=== PATIENT | male | born 1940 | race Caucasian/White ===

== ENCOUNTER 2024-04-10 16:45 | Emergency (ER) | payer OTHER, SELFPAY ==
[2024-04-10] VITALS (8 sets, daily range): BP systolic 120–157; BP diastolic 52–119; BMI 31.8
[2024-04-10 17:16] LABS: % Basophils 0.4 % (0-2); % Eosinophils 0.8 % (0-6); % Immature Granulocytes 0.4 % (0-0.5); % Lymphocytes 11.6 % (20.5-51.1); % Monocytes 5.8 % (1.7-9.3); Absolute Eosinophils 0.1 10^3/uL (0-0.7); Absolute Lymphocytes 1.1 10^3/uL (1.2-3.4); Absolute Monocytes 0.5 10^3/uL (0.1-0.6); Absolute Neutrophils 7.5 10^3/uL (1.4-6.5); Hematocrit 39.5 % (39.0-52.0); Hemoglobin 13.7 g/dL (13.0-18.0); Mean Corp Hgb Conc. 34.7 g/dL (33.0-37.0); Mean Corpuscular Hgb 28.7 pg (27.0-31.0); Mean Corpuscular Volume 82.8 fL (80.0-94.0); Mean Platelet Volume 9.5 fL (7.4-10.4); Nucleated Red Blood Cells % 0 % (-); Platelet Count 252 10^3/uL (130-400); Red Blood Cell Count 4.77 10^6/uL (4.70-6.10); Red Cell Dist. Width 13.4 % (11.5-14.5); White Blood Cell Count 9.3 10^3/uL (4.8-10.8)
--- NOTE | 2024-04-10 17:29 | ED.GENMED ---
History of Present Illness
General
Chief Complaint: Weakness
Source: patient
Time Seen by Provider: 04/10/24 17:12
Nursing documentation reviewed up to this point in time: agreed with
History of Present Illness
History of Present Illness:
Pleasant 83-year-old male presents with nausea, vomiting and weakness today. Patient was in the [place] yesterday. While on vacation he awakened from a dream and was startled, falling and hitting his head on the corner of the nightstand. He
went to the local hospital because the bleeding could not be controlled with direct pressure. He had a CAT scan there which they stated was normal. They gave him 3 eliezer and sent him home. Patient is on Xarelto and took a dose last evening.
This morning he awakened with a headache. This was the first time since the injury that he had a headache, along with nausea and progressive weakness. Patient's states that he is not 'acting himself '. Patient has a past medical history
significant for persistent atrial fibrillation, for which she is on Xarelto. He also has high blood pressure and hyperlipidemia. Patient denies chest pain or shortness of breath.
Past History
Past History
ED Past Medical History: Arrthythmia (Atrial fibrillation), HTN, Hypercholesterolemia and Other (: Polyps)
ED Past Surgical History: Other (History of colon polyps and removal of 12/04/2011, and carpal tunnel surgery)
Social History
Tobacco: Non-smoker
Alcohol: None
Personal:
Living: with family
Employment: Retired
Phy Exam
General Physical Exam
General Presentation: well appearing and no apparent distress
General Skin: warm and dry
General Habitus: normal
General Mental: alert
General Hydration: appears well hydrated
ENT Exam
ENT Exam: EOMI, pharynx normal, neck supple and normocephalic
Eye Exam
Eye Exam: PERRL, cornea clear and conjunctiva normal
Cardiovascular Exam
Cardiovascular Exam: no edema, no murmur, normal peripheral pulses and irregularly irregular
Pulmonary Exam
Pulmonary Exam: lungs clear, no respiratory distress, no rales, no crackles, no rhonchi, no stridor, no wheezing and no cough
Gastrointestinal Exam
Gastrointestinal Exam: normal bowel sounds, non tender, soft, no organomegaly, no pulsatile mass and non distended
Neurological Exam
Neurological Exam: alert, oriented x3, no motor deficits and speech normal
Musculoskeletal Exam
Musculoskeletal Exam: full ROM and no edema
Skin Exam
Skin Exam: normal color (Slightly sunburned), warm/dry, no rash, no petechia and laceration (3 sutures in the scalp from a laceration sustained yesterday)
Psychiatric Exam
Psychiatric Exam: normal mood/affect
Course
Orders/Labs/Results
Orders:
Orders
04/10/24 17:09
CMP [Comprehensive Metabolic Panel] Urgent
Complete Blood Count/With Diff Urgent
Creatine Phosphokinase Urgent
Comment: ADD ON
04/10/24 17:10
EKG [Electrocardiogram (*1)] Urgent
Reason for Study: Fatigue / Weakness
04/10/24 17:11
EKG- Treatment ONCE
04/10/24 17:25
CT Head W/o Iv Contrast Urgent
Comment:
Reason For Exam: fall yest on xaralto. CT neg yest. N/v,dizzy,weak
04/10/24 17:26
Add On- LAB Urgent
Tests Added?: cpk
04/10/24 19:26
Levetiracetam [Keppra] 500 mg PO NOW STA
04/10/24 19:53
Prothrombin Complex(Pcc),Human [Kcentra] 2,595 unit Empty Viaflex Container 100 ml [Viaflex Empty Container] 100 ml IV NOW
Abnormal Lab Results
04/10/24
17:09
Absolute Neuts (auto) 7.5 H 10^3/uL
(1.4-6.5)
Absolute Lymphs (auto) 1.1 L 10^3/uL
(1.2-3.4)
Neutrophils % 81.0 H %
(42.2-75.2)
Lymphocytes % 11.6 L %
(20.5-51.1)
Sodium 134 L mmol/L
(135-145)
Glucose 146 H mg/dl
(70-99)
04/10/24 17:09
04/10/24 17:09
Vital Signs
Initial and Last Documented VS:
Initial Vital Signs
Temp Pulse Resp BP Pulse Ox
98.3 F 66 18 131/64 99
04/10/24 16:52 04/10/24 16:52 04/10/24 16:52 04/10/24 16:52 04/10/24 16:52
Last Documented Vital Signs
Temp Pulse Resp BP Pulse Ox
98.3 F 49 17 120/58 99
04/10/24 16:52 04/10/24 21:00 04/10/24 21:00 04/10/24 21:00 04/10/24 16:52
*Critical Care Note
Total Time (30-74mins, 75-104mins- exclusive of procedures): 45
comment:
Critical care statement: A total of 45 minutes of critical care time was provided for this patient. This time is separate from time utilized to perform the aforementioned documented procedures. Aggregate critical care time includes only time
during which I was engaged in work directly related to the patient's care, as described above, whether at the bedside or elsewhere in the Emergency Department.
Update Note
Update Note:
Spoke with Valdo Lara, neurology who recommended transfer to trauma center. Spoke with Dr. Brambila, trauma surgeon on-call at [facility] who agreed to accept patient for trauma transfer. Spoke with Dr. Bowser, trauma surgeon who agreed to
accept patient in transfer to the emergency department. Requested we start Kcentra. Xarelto discontinued. Patient received 500 mg of Keppra p.o.
ED Attending Note
-
Portions of this chart may have been created with voice recognition software.� Occasional wrong word or��sound alike� substitutions may have occurred due to the inherent limitations of voice recognition software.
Discharge Plan
Departure
Patient Disposition: Acute Care Hospital
Date of Disposition: 04/10/24
Time of Disposition: 19:28
Condition: Good
Discharge Problem:
Acute subdural hematoma
Prescriptions:
No Action
furosemide 40 MG tablet
40 mg PO DAILY
amlodipine 5 MG tablet
5 mg PO DAILY
lisinopril [Prinivil] 40 MG tablet
40 mg PO DAILY
Xarelto 20 MG tablet
20 mg PO QPM
atorvastatin 40 mg Tablet
40 mg PO DAILY
atenolol 25 mg Tablet
25 mg PO DAILY
gabapentin 100 mg Tablet
100 mg PO DAILY
Arnuity Ellipta 200 mcg/actuation Blister With Device
1 inh INHALATION DAILY
citalopram 30 mg Capsule
30 mg PO DAILY
Referrals:
Doug Maldonado MD [Family Provider] -
Hospital Transfer
Other hospital: [facility]
I certify that the patient requires transfer: Yes
Discussed case with accepting physician: Dr. Bowser after consultation with Dr. Brambila
Reason for transfer: higher level of care, medical necessity and availability of service
Interventions
Interventions:
*Risk Screen - Suicide Last Done: 04/10/24 16:52
*General Assessment Last Done: 04/10/24 16:55
*Neglect/Abuse Screening Last Done: 04/10/24 16:52
ED- Fall Risk Assessment Last Done: 04/10/24 16:52
*ED COVID-19 Vaccine History Last Done: 04/10/24 16:52
*Nursing Disposition Last Done: 04/10/24 20:58
ED- Cardiac Assessment Last Done: 04/10/24 16:56
ED- Neurological Assessment Last Done: 04/10/24 16:56
ED- Pulmonary Assessment Last Done: 04/10/24 16:56
Discharge Date and Time
Discharge Date/Time: 04/10/24 21:17
Print Language: STATELESS
[2024-04-10 17:38] LABS: ALT (SGPT) 17 U/L (0-50); AST (SGOT) 22 U/L (17-59); Albumin 4.4 g/dl (3.5-5.0); Alkaline Phosphatase 118 U/L (38-126); Blood Urea Nitrogen 17 mg/dl (9-20); Calcium 9.3 mg/dl (8.4-10.2); Carbon Dioxide 26 mmol/L (22-30); Chloride 98 mmol/L (98-107); Estimated Creatinine Clearance 91 ml/min; Glucose 146 mg/dl (70-99); Potassium 4.7 mmol/L (3.5-5.1); Sodium 134 mmol/L (135-145); Total Bilirubin 1.3 mg/dl (0.2-1.3); Total Protein 7.3 g/dl (6.3-8.2); eGFR > 60.00
[2024-04-10 17:50] LABS: Creatine Phosphokinase 129 U/L (55-170)
[2024-04-10] MEDS: KEPPRA 500 MG PO (19:39)
[2024-04-10] MEDS: KCENTRA 100 UNIT IV (20:18)
== END 2024-04-10 21:17 | disposition short-term general hospital (02) ==
LOC: EMR 16:45
PROVIDERS: Emergency Medicine; EMERGENCY PHYSICIAN Student in an Organized Health Care Education/Training Program; FAMILY PHYSICIAN Family Medicine
DX: S06.5XAA Traumatic subdural hemorrhage with loss of consciousness status unknown, initial encounter (principal); W06.XXXA Fall from bed, initial encounter; Z79.01 Long term (current) use of anticoagulants
CPT/HCPCS: 99291; 96374; 70450; 80053; 82550; 85025; 93005; J7168

== ENCOUNTER 2024-04-20 15:06 | Inpatient (IN) | payer OTHER, SELFPAY ==
[2024-04-19] VITALS (12 sets, daily range): BP systolic 120–163; BP diastolic 54–78; PULSE 69–86; BMI 31.2
--- NOTE | 2024-04-19 08:45 | ED.GENMED ---
History of Present Illness
General
Chief Complaint: Dizziness
Source: patient
Exam Limitations: none
Time Seen by Provider: 04/19/24 08:45
History of Present Illness
History of Present Illness:
See MDM
Past History
Past History
ED Past Medical History: Arrthythmia (Atrial fibrillation), HTN, Hypercholesterolemia and Other (: Polyps)
ED Past Surgical History: Other (History of colon polyps and removal of 12/04/2011, and carpal tunnel surgery)
Social History
Tobacco: Non-smoker
Alcohol: None
Personal:
Living: with family
Employment: Retired
Phy Exam
Physical Exam
Physical Exam:
See MDM
Scores
NIH Stroke Score
Level of Consciousness: 0 - Alert
LOC Questions: 0-Answers both correctly
LOC Commands: 0-Performs both correctly
Best Horizontal Gaze: 0-Normal
Visual Nelson: 0=Normal, no visual loss
Facial Palsy: 0=Normal, symmetrical
Motor - Right Arm: 0=No drift 10 seconds
Motor - Left Arm: 0=No drift 10 seconds
Motor - Right Le-No drift 5 seconds
Motor - Left Le-No drift 5 seconds
Limb Ataxia: 0-Absent
Sensation: 0-Normal
Best Language: 1-Mild aphasia
Dysarthria: 0-Normal
Extinction and Inattention: 0-No abnormality
Total Score:: 1
Course
Orders/Labs/Results
Orders:
Orders
04/19/24 08:45
Electrocardiogram (*1) Urgent
Reason for Study: Vertigo / Dizzy
CT Head W/o Iv Contrast Urgent
Comment:
Reason For Exam: Dizzy, recent head bleed last week
EKG- Treatment ONCE
04/19/24 09:02
Complete Blood Count/With Diff Urgent
Comprehensive Metabolic Panel Urgent
Abnormal Lab Results
04/19/24 04/19/24
08:46 09:02
Sodium 132 L mmol/L
(135-145)
Chloride 97 L mmol/L
(98-107)
Glucose 168 H mg/dl
(70-99)
POC Glucose 174 H mg/dl
(70-99)
04/19/24 09:02
04/19/24 09:02
Vital Signs
Initial and Last Documented VS:
Initial Vital Signs
Pulse Resp BP
60 12 125/59
04/19/24 08:44 04/19/24 08:44 04/19/24 08:44
Last Documented Vital Signs
Pulse Resp BP Pulse Ox
65 13 139/72 97
04/19/24 10:45 04/19/24 10:45 04/19/24 10:09 04/19/24 10:45
MDM/Problems Addressed
Differential Diagnosis Includes:
HPI and MDM Narrative:
83-year-old male presenting with resolved dizziness. Patient woke up feeling dizzy. Of note, patient had a fall last week while on vacation. He was evaluated when he returned and found to have head bleed. His Xarelto has since been held. He was
discharged last week from the hospital at [place]. His eliezer were removed yesterday. He woke up feeling dizzy today
Symptoms have since resolved. He has no cerebellar signs. He has mild word finding issues but states this is normal ever since his injury
Physical exam
General: Well appearing and non-toxic
HEENT: protecting airway. Well-healing laceration to posterior right scalp
Neck: supple
CV: No evidence of cyanosis. Regular rate, irregular rhythm
Resp: No accessory muscle use
Abd: Non-distended
Extremities: No deformities
Neuro: alert. Normal finger-nose
Psych: Normal affect
Skin: Intact
Problems Addressed including Acute and Chronic Conditions affecting care:
1. Resolving dizziness and aphasia
Acuity: acute
Prognosis: stable
Details: Given his intracranial hemorrhage, will repeat CT
Updates
at bedside. She indicated that patient had about a 5-minute episode where he was minimally responsive and was unable to speak. Symptoms appear to self resolved. Patient appears to be symptom-free at the moment. She is worried about possible
stroke. She indicates that his sales and events coordinator Dr. Rose had referenced that there is a clot in his atrium and the plan was to continue Xarelto. However, the recent head bleed has taken him off of Xarelto.
CT confirms that there is still a subdural hemorrhage. Radiology indicating that there could be a subacute hemorrhage component. Patient is at baseline and has no new focal deficits and denies any headache. He is no longer on Xarelto.
Neurosurgery did evaluate the CT and believes that there is no new hemorrhage.
Will admit for further stroke workup
Differential Diagnosis (but not limited to): Vertigo, intracranial hemorrhage, stroke
Testing considered: CT angiogram
Drug therapy (if applicable): OTC meds, please see d/c instruction regarding Rx drugs
Amount and/or Complexity of Data Reviewed
Clinical info obtained from: Patient
External data reviewed: N/A
Labs I independently reviewed (but not limited to): Mild hyperglycemia
Radiology: The CT scan was personally and independently reviewed. In addition, official CT report reviewed.
Pulse Ox: not hypoxic
EKG independently reviewed: A-fib, normal axis, no STEMI
Shore Man: A-fib
Critical Care: N/A
Risk of Complication:
Social Determinants of health: Good social support
Discussed with other providers: Hospitalist, neurology, neurosurgery
Escalation of Care includes Admit/Obs: Given the strokelike symptoms, will admit for further workup
Occasional wrong word or 'sound a like' substitutions may have occurred due to the inherent limitations of voice recognition software. Read the chart carefully and recognize, using context, where substitutions have occurred.
*Critical Care Note
Total Time (30-74mins, 75-104mins- exclusive of procedures): Not Applicable
ED Attending Note
-
Portions of this chart may have been created with voice recognition software.� Occasional wrong word or��sound alike� substitutions may have occurred due to the inherent limitations of voice recognition software.
Discharge Plan
Departure
Patient Disposition: Admit
Date of Disposition: 04/19/24
Time of Disposition: 11:47
Admit to: Telemetry
Presentation/result/management discussed w/ accepting MD/DO: Hospitalist
Discharge Problem:
Aphasia
Prescriptions:
No Action
furosemide 40 MG tablet
40 mg PO DAILY
amlodipine 5 MG tablet
5 mg PO DAILY
lisinopril [Prinivil] 40 MG tablet
40 mg PO DAILY
Xarelto 20 MG tablet
20 mg PO QPM
atorvastatin 40 mg Tablet
40 mg PO DAILY
atenolol 25 mg Tablet
25 mg PO DAILY
gabapentin 100 mg Tablet
100 mg PO DAILY
Arnuity Ellipta 200 mcg/actuation Blister With Device
1 inh INHALATION DAILY
citalopram 30 mg Capsule
30 mg PO DAILY
Referrals:
Doug Maldonado MD [Family Provider] -
Interventions
Interventions:
*Risk Screen - Suicide Last Done: 04/19/24 08:52
*General Assessment Last Done: 04/19/24 08:52
*Neglect/Abuse Screening Last Done: 04/19/24 08:52
ED- Fall Risk Assessment Last Done: 04/19/24 08:52
*ED COVID-19 Vaccine History Last Done: 04/19/24 08:52
ED- Neurological Assessment Last Done: 04/19/24 08:52
ED- Cardiac Assessment Last Done: 04/19/24 08:52
Discharge Date and Time
Print Language: EQUATORIAL GUINEAN
[2024-04-19 08:48] LABS: Glucose - Point of Care 174 mg/dl (70-99)
[2024-04-19 09:17] LABS: % Basophils 0.5 % (0-2); % Eosinophils 2.1 % (0-6); % Immature Granulocytes 0.3 % (0-0.5); % Lymphocytes 21.3 % (20.5-51.1); % Monocytes 5.3 % (1.7-9.3); % Neutrophils 70.5 % (42.2-75.2); Absolute Eosinophils 0.1 10^3/uL (0-0.7); Absolute Lymphocytes 1.4 10^3/uL (1.2-3.4); Absolute Monocytes 0.4 10^3/uL (0.1-0.6); Absolute Neutrophils 4.7 10^3/uL (1.4-6.5); Hematocrit 39.5 % (39.0-52.0); Hemoglobin 13.8 g/dL (13.0-18.0); Mean Corp Hgb Conc. 34.9 g/dL (33.0-37.0); Mean Corpuscular Hgb 29.1 pg (27.0-31.0); Mean Corpuscular Volume 83.3 fL (80.0-94.0); Mean Platelet Volume 9.6 fL (7.4-10.4); Nucleated Red Blood Cells % 0 % (-); Platelet Count 270 10^3/uL (130-400); Red Blood Cell Count 4.74 10^6/uL (4.70-6.10); Red Cell Dist. Width 13.2 % (11.5-14.5); White Blood Cell Count 6.6 10^3/uL (4.8-10.8)
[2024-04-19 09:30] LABS: ALT (SGPT) 17 U/L (0-50); AST (SGOT) 19 U/L (17-59); Albumin 4.1 g/dl (3.5-5.0); Alkaline Phosphatase 122 U/L (38-126); Blood Urea Nitrogen 18 mg/dl (9-20); Calcium 9.3 mg/dl (8.4-10.2); Carbon Dioxide 24 mmol/L (22-30); Chloride 97 mmol/L (98-107); Glucose 168 mg/dl (70-99); Potassium 4.2 mmol/L (3.5-5.1); Sodium 132 mmol/L (135-145); Total Bilirubin 0.9 mg/dl (0.2-1.3); Total Protein 6.9 g/dl (6.3-8.2); eGFR > 60.00
--- NOTE | 2024-04-19 12:43 | HPS.HSE ---
Addendum entered and electronically signed by Crescencio Payton MD 04/19/24 15:01:
Episode this morning of feeling weak, dizzy, cold and clammy. No seizure activity. Similar episode ~9 mos ago. Currently no symptoms
Pt seen independently and agree with PA note
Lungs clear
CV irreg, borderline bradycardia
Ext no edema
Imp: acute episode most likely related to cardiac rhythm, less likely neurologic
permanent A. Fib
Recent subdural hematoma with Xarelto on hold
essential HTN
P:cardio, neuro and neurosurg consult
AED as per neuro
full code
Original Note:
Family Physician
-
Family Physician: Doug Maldonado
Chief Complaint
-
Dizziness/Aphasia
History of Present Illness
Patient is an 83 y/o male with a PMH of HTN, HLD, permanent AFib, and a subdural hematoma 04/10 currently off Xarelto who reports to the ED via EMS after near syncopal event. Patient states that this morning while in his kitchen making breakfast he
became weak, dizzy, cold, and clammy, which prompted him to sit down. His at bedside states when she saw him he was pale, sweaty, and was talking but not coherently. He states the episode lasted less than a minute. He denies LOC, falling, or
hitting his head. He admits he has had a similar episode 6-9 months ago where he passed out outside and had seen his integration lead Dr. Rose who stated if he had another episode he would try a heart monitor. His atenolol was stopped during his
admission at [facility]. He denies chest pain, shortness of breath, palpitations, visual changes, nausea, vomiting, abdominal pain, numbness or tingling, weakness in his extremities, difficulty speaking. He denies a history of orthostatic hypotension,
DVT/PE, DM, or seizures. He was placed on Keppra x 5 days per the neurosurgeon at [facility] and completed his course. He denies any auras, tongue biting, incontinence of muscle jerking.
Medical History
Past Medical History
Past Medical History: Reports Other
Additional Past Medical History:
Subdural Hematoma
Permanent Atrial Fibrillation
Chronic Diastolic Heart Failure
Essential Hypertension
Hyperlipidemia
Diabetes Mellitus, Type II
Asthma/Reactive Airway Disease
Depression
Past Surgical History: Reports Other
Additional Past Surgical History:
Carpal Tunnel Surgery
Social History
Tobacco: Non-smoker
Alcohol: None
Family History
Family History: Not pertinent
Allergies / Home Medications
Allergies reflects when Allergies were last updated in [facility].
Home Medications with original date entered in [facility]
Allergy/Medication List:
Allergies
Allergy/AdvReac Type Severity Reaction Status Date / Time
No Known Drug Allergies Allergy Unknown Unknown Verified 04/19/24 08:50
Home Medications
amlodipine 5 mg tablet 5 mg PO DAILY 10/06/13
furosemide 40 mg tablet 40 mg PO DAILY 10/06/13
atorvastatin 40 mg tablet 40 mg PO DAILY 04/10/24
citalopram 30 mg capsule 30 mg PO QPM 04/10/24
fluticasone furoate 200 mcg/actuation blister powder for inhalation (Arnuity Ellipta) 1 inh inhalation R DAILY 04/10/24
acetaminophen 500 mg tablet (Tylenol Extra Strength) 1,000 mg PO Q6HPRN PRN mild pain 04/19/24
docusate sodium 100 mg tablet (Stool Softener) 100 mg PO QPM 04/19/24
gabapentin 100 mg capsule 100 mg PO QPM 04/19/24
lisinopril 40 mg tablet 40 mg PO DAILY 04/19/24
Review of Systems
-
A 12 point ROS was completed and negative except as noted: Yes
Constitutional: Denies Fever or Chills
Respiratory: Denies Cough or Trouble Breathing
Cardiac: Denies Chest Pain or Palpitations
Physical Exam
Vital Signs
Vital Signs
Pulse Resp BP Pulse Ox
63 17 141/71 95
04/19/24 12:00 04/19/24 12:00 04/19/24 12:00 04/19/24 11:45
Physical Exam
General: Comfortable and Conversant
HEENT: Anicteric and Moist mucous membranes
Respiratory: Clear and Non Labored Respirations
Cardiac: S1/S2 and Irregular Rhythm (Slight bradycardia)
GI: Soft and Non Tender
Rectal: Deferred by Provider
Musculoskeletal: No Clubbing, No Cyanosis and No Edema
Skin: Warm and Dry
Neuro: Awake, Alert, Oriented and Nonfocal/grossly intact
Psych: Calm
Laboratory Results
-
04/19/24 09:02
04/19/24 09:02
Laboratory Results
Total Bilirubin 0.9 mg/dl (0.2-1.3) 04/19/24 09:02
AST 19 U/L (17-59) 04/19/24 09:02
ALT 17 U/L (0-50) 04/19/24 09:02
Alkaline Phosphatase 122 U/L (38-126) 04/19/24 09:02
Data Reviewed
-
CT Scan: Report Reviewed by me
Lab Data: Labs Reviewed by me
Old Records: Reviewed
Impression/Plan
-
Dizziness, possibly Near-Syncope/Syncope due to arrhythmia vs orthostasis
-Consult Neurology and Cardiology
-Check Orthostatic Vital Signs
-Check Echocardiogram
-Hold on antiplatelets until seen by Neurology due to recent subdural
Recent Subdural Hematoma
-Consult Neurology/Neurosurgery
-Xarelto currently on hold
-Continue Keppra as recommended by Neurology
Permanent Atrial Fibrillation
-Consult Cardiology
-Monitor on Telemetry
Chronic Diastolic Heart Failure
-Continue Lasix
-Monitor Is&Os and Daily Weights
Essential Hypertension
-Continue amlodipine and lisinopril with hold parameters
Hyperlipidemia
-Continue atorvastatin
Diabetes Mellitus, Type II
-Check HgbA1c
-Monitor sugars and continue coverage insulin
Asthma/Reactive Airway Disease
-Continue fluticasone
Depression
-Continue citalopram
Chronic Hyponatremia
-Sodium level appears stable from previous
DVT proph: SCDs
Code Status: Full Code
--- NOTE | 2024-04-19 15:12 | CON.CAR ---
Addendum entered and electronically signed by Hussain Reyes MD 04/20/24 07:38:
.
Original Note:
Consultation
Consultation Request
Date/Time Consultation Performed: 04/19/24
Requesting Provider: Gris Pat PA-C
Performing Provider: Elizabeth Matson PA-C for Dr. Howard
Reason for Consultation: afib, off OAC, presyncope
Medical History
-
Chief Complaint: presyncope
History of Present Illness:
Patient is an 83-year-old male with past medical history of permanent atrial fibrillation, left atrial appendage clot, chronic anticoagulation with Xarelto, chronic diastolic congestive heart failure, hypertension, history of vasovagal syncope,
hyperlipidemia, restrictive lung disease. He reports on his last day of vacation at [facility] he was sleeping and had a dream which resulted in him falling out of bed. He hit the back of his head with this and had a laceration. He went to the
local hospital at [facility] and received 3 eliezer and was discharged from the ER. They drove home thereafter. The following morning he woke up with a bad headache, and throughout the day became more profoundly weak. He came here for evaluation
and was found to have subdural hematoma and transferred to [facility] for trauma evaluation. While there he was taken off of his outpatient atenolol due to bradycardia, mostly nocturnally poor patient's family. He has remained off of
Xarelto since that hospitalization. Today he was getting ready brushing his teeth and began to feel weak as well as cold and clammy. He sat down and was noted to have a witnessed near syncopal episode by his . She reports that he had some
slurred speech and was ashen, however never fully 'went out.' He reports it took approximately 30 minutes for him to feel back to baseline. denies any post event confusion/postictal state. He had been on Keppra for several days immediately
following his diagnosis of SDH. Head CT fortunately with stable hematoma. Cardiology consulted for evaluation
PMH:
Fall with scalp laceration and SDH 04/09/24
Permanent afib
History of ALONDRA clot
OAC with xarelto, presently on hold with above
Chronic HFpEF
HTN
History of vasovagal syncope
HLD
Restrictive lung disease
Past Medical History
Past Medical History: Other (in HPI)
Social History
Tobacco: Non-Smoker
Alcohol: None
Personal:
Living: With Family
Employment: Retired
Family History
Family History: Cancer
Allergies / Home Medications
Allergy/AdvReac Type Severity Reaction Status Date / Time
No Known Drug Allergies Allergy Unknown Unknown Verified 04/19/24 08:50
�Medication �Instructions �Recorded �Confirmed �Type
amlodipine 5 mg tablet 5 mg PO DAILY 10/06/13 04/19/24 History
furosemide 40 mg tablet 40 mg PO DAILY 10/06/13 04/19/24 History
atorvastatin 40 mg tablet 40 mg PO DAILY 04/10/24 04/19/24 History
citalopram 30 mg capsule 30 mg PO QPM 04/10/24 04/19/24 History
fluticasone furoate 200 1 inh inhalation R DAILY 04/10/24 04/19/24 History
mcg/actuation blister powder for
inhalation (Arnuity Ellipta)
acetaminophen 500 mg tablet 1,000 mg PO Q6HPRN PRN mild pain 04/19/24 04/19/24 History
(Tylenol Extra Strength)
docusate sodium 100 mg tablet 100 mg PO QPM 04/19/24 04/19/24 History
(Stool Softener)
gabapentin 100 mg capsule 100 mg PO QPM 04/19/24 04/19/24 History
lisinopril 40 mg tablet 40 mg PO DAILY 04/19/24 04/19/24 History
Review of Systems
-
History Source: Patient and Family
All other systems: Negative unless noted
Physical Exam
Vital Signs
Pulse Resp BP Pulse Ox
66 18 146/78 98
04/19/24 14:30 04/19/24 14:30 04/19/24 14:00 04/19/24 14:15
Lab Results
04/19/24 09:02
04/19/24 09:02
Physical Exam
General: No Apparent Distress and Comfortable
HEENT: Normocephalic, Anicteric and Moist Mucous Membranes
Respiratory: Clear and Non Labored Respirations
Cardiac: S1/S2 and Irregular Rhythm
GI: Soft, Non Tender and Distended (mild)
Musculoskeletal: No Clubbing, No Cyanosis and Edema (trace of B/L LE)
Skin: Warm and Dry
Neuro: AO x 3
Impression / Plan
-
Primary Pmo Lead: Dr. Rose
Assessment:
presentation with presyncope
Recent fall with scalp laceration and SDH 04/09/24, resulting in transfer to [facility] for trauma eval 04/10/24
Permanent afib
History of ALONDRA clot
OAC with xarelto, presently on hold with above
Chronic HFpEF
HTN
History of vasovagal syncope
HLD
Restrictive lung disease
ECHO 2019: EF 55 to 60%, mildly dilated bilateral atria, mild MR, mild [place]
Plan:
-Patient had recent fall with resultant subdural hematoma for which patient was evaluated at [facility] for trauma 04/10/2024
-Today he presents with presyncopal episode. He denies preceding lightheadedness or dizziness, but did feel weak, cold, and clammy prior
-difficult situation
-Remains in rate controlled A-fib on review of telemetry in ER with heart rates in 60s. Outpatient atenolol had been stopped at [facility] due to nocturnal bradycardia. Would consider for eventual sleep study as concern for underlying
sleep apnea
-Check orthostatic vital signs. Blood pressure stable/elevated in ER
-Check echo, last from 2019 with results as above
-Follow on telemetry
-Neurology to follow in setting of recent subdural hematoma - eval for seizure, TIA/CVA. Head CT today fortunately appears stable compared to prior
-Hemoglobin stable at 13.8
-Xarelto remains on hold at present time. As subdural hematoma was provoked by fall, could likely consider resuming at some point once cleared by neurology/neurosurgery
-Also discussed option of eventual watchman, however would need to be able to tolerate short-term anticoagulation to complete this
-Discussed with hospitalist SHAE. Discussed with patient and family at bedside
Data Reviewed
-
EKG: Tracing Personally Visualized and interpreted
CT Scan: Report Reviewed by me
Medical Tests (Nuc Med, Echo etc): Report Reviewed by me
Labs: Labs Reviewed by me
Old Records: Reviewed
[2024-04-19 17:40] LABS: Glucose - Point of Care 146 mg/dl (70-99)
[2024-04-19] MEDS: CELEXA 30 MG PO (17:44)
[2024-04-19] MEDS: NOVOLOG FLEXPEN-LOW RESISTANCE SC (17:44)
[2024-04-19] MEDS: NEURONTIN 100 MG PO (17:45)
[2024-04-19 21:32] LABS: Glucose - Point of Care 132 mg/dl (70-99)
[2024-04-19] MEDS: KEPPRA 1000 MG PO (21:56)
--- NOTE | 2024-04-19 22:52 | CON.NEURO4 ---
Consultation - Neurology 4
-
CONSULTING PHYSICIAN: Valdo Lara MD(Neurology)
REFERRING PHYSICIAN: Hospitalist
DICTATED BY: Valdo Lara MD
DATE/TIME OF REQUEST: 04/19/2024
DATE/TIME OF CONSULTATION: 04/19/2024 1230
Reason for Consultation: Syncope
History of Present Illness:
This is a 83 year old right handed male who has presented to the hospital with syncope. He gives a past medical history of atrial fibrillation, left atrial appendage clot, (anticoagulation with Xarelto till 04/13), chronic diastolic congestive
heart failure, hypertension, vasovagal syncope, hyperlipidemia, restrictive lung disease. He reports that he was in his [place] till his last day of vacation at [facility](04/08). He was sleeping and had a dream causing him falling out of bed. He hit
the back of his head and suffered a laceration. He went to the local hospital and wound was stapled and was discharged from the ER. They returned to ID.
Next morning he woke up with a new headache, and had difficulty with ADLS throughout the day because of new weakness. He came to [place] (04/10) for evaluation and was found to have subdural hematoma and transferred to [facility] for
trauma evaluation.
While there atenolol was discontinued due to bradycardia, mostly nocturnal. Xarelto was discontinued too.
Today he was getting ready, brushing his teeth and began to feel weak as well as cold and clammy. He sat down and was noted to have a witnessed near syncopal episode by his . She reports that he had slurred speech and was ashen, however never
lost consciousness.' He reports it took approximately 30 minutes for him to feel back to baseline. denies any postictal confusion. He had been on Keppra for 7-8 days immediately following his diagnosis of SDH.
Head CT showed stable Left frontotemporal parietal subdural hematoma which extends along the superior margin of the left tentorium, not significantly changed in size when compared with the 04/10/2024 examination.
This subdural hematoma is associated with compression of the underlying gyri and 1-2 mm shift of midline structures to the right without subfalcine herniation.
At the time of my exam pat was awake alert oriented with normal speech
Past Medical History: As above
Surgical History: Carpal Tunnel
Family History: NC
Social History: lives at home
Allergies: NKA
Home Medications: Addendum
Review of Symptoms:
Patient denies any fever, headache, chest pain, shortness of breath, GI or symptoms.
Vital Signs:
The patient has a .
Pulse Resp BP Pulse Ox
63 17 141/71 95
Physical Exam:
The patient is afebrile, heart sounds S1 and S2 are irregular, and chest is clear to auscultation bilaterally.
Neurologic Examination:
The patient is awake, alert and oriented x 3. He is able to follow commands and answer questions appropriately. There is no aphasia or dysarthria. On cranial nerve assessment, pupils are 3 mm bilateral, round and reactive to light and
accommodation. Visual story are full. Extraocular movements are intact. Facial sensations are intact and bilaterally symmetrical, there is no facial asymmetry. Hearing is intact bilaterally to normal conversation volume. Tongue palate and uvula
are midline. Sternocleidomastoid strengths are full bilaterally. Motor strengths are 4/5 bilateral upper and lower extremities on medical research O'Brien scale.
. Deep tendon reflexes are 2+ bilateral upper and lower extremities and Babinski is absent bilaterally.
Sensations of pain, touch, temperature and vibration are intact and bilaterally symmetrical. There was no extinction noted on double simultaneous stimulation. Coordination is intact by finger to nose bilaterally. Rombergs Gait unsteady
Lab Results: Addendum
Neuro Imaging: Left frontotemporal parietal subdural hematoma which extends along the superior margin of the left tentorium, not significantly changed in size when compared with the 04/10/2024 examination.
This subdural hematoma is associated with compression of the underlying gyri and 1-2 mm shift of midline structures to the right without subfalcine herniation.
Impression:
Mr. PRIYANK SOSA is a 83 year old M who has presented to the hospital with near syncope today with a h/o left SD Hematoma, off Xarelto.
Differentials for the patient's presentation include:
1. Seizure
Recommendations:
1. Serial CT head
2. Restart Keppra 1000mg qhs
3. Cariology eval
Discussed patient care with: Hospitalist
Medications
-
Active Medications
Generic Name Dose Route Start Last Admin
Trade Name Freq PRN Reason Stop Dose Admin
Acetaminophen 650 mg 04/19/24 14:36
Acetaminophen 650 Mg Rectal Suppository RECTAL 05/17/24 14:35
Q4HPRN PRN
AGOSTO, mild pain, or temp >100.4F
Acetaminophen 650 mg 04/19/24 14:36
Acetaminophen 325 Mg Tablet PO 05/17/24 14:35
Q4HPRN PRN
AGOSTO, mild pain, or temp >100.4F
Amlodipine Besylate 5 mg 04/20/24 08:00
Amlodipine 5 Mg Tablet PO 05/18/24 07:59
DAILY HYACINTH
Atorvastatin Calcium 40 mg 04/20/24 08:00
Atorvastatin (Lipitor) 40 Mg Tablet PO 05/18/24 07:59
DAILY HYACINTH
Citalopram Hydrobromide 30 mg 04/19/24 18:00 04/19/24 17:44
Citalopram 10 Mg Tablet PO 05/17/24 17:59 30 mg
QPM HYACINTH Administration
Dextrose 12.5 grams 04/19/24 14:36
Dextrose 50% (0.5 Grams/Ml) 50 Ml Syringe IV 05/17/24 14:35
[id number] PRN
hypoglycemia
Protocol
Fluticasone Propionate 2 puff 04/19/24 20:00 04/19/24 20:04
Fluticasone 110mcg Inhaler INH 05/17/24 19:59 2 puff
R BID HYACINTH Administration
Furosemide 40 mg 04/20/24 08:00
Furosemide 40 Mg Tablet PO 05/18/24 07:59
DAILY HYACINTH
Gabapentin 100 mg 04/19/24 18:00 04/19/24 17:45
Gabapentin 100 Mg Capsule PO 05/17/24 17:59 100 mg
QPM HYACINTH Administration
Glucagon 1 mg 04/19/24 14:36
Glucagon 1 Mg Vial IM 05/17/24 14:35
PRN PRN
hypoglycemia
Protocol
Insulin Aspart 0 units 04/19/24 16:30 04/19/24 17:44
Insulin Aspart Low Resistance 300 Units/3 Ml Pen.Injctr SC 05/17/24 16:29 Not Given
AC HYACINTH
Protocol
Levetiracetam 1,000 mg 04/19/24 22:00 04/19/24 21:56
Levetiracetam 500 Mg Regular Release Tablet PO 05/17/24 21:59 1,000 mg
HS HYACINTH Administration
Lisinopril 40 mg 04/20/24 08:00
Lisinopril 20 Mg Tablet PO 05/18/24 07:59
DAILY HYACINTH
Sodium Chloride 0 flush 04/19/24 15:00
Sodium Chloride 0.9% (Flush) Syringe IV 05/17/24 14:59
PER PROTOCOL HYACINTH
Home Medications
�Medication �Instructions �Recorded
amlodipine 5 mg tablet 5 mg PO DAILY 10/06/13
furosemide 40 mg tablet 40 mg PO DAILY 10/06/13
atorvastatin 40 mg tablet 40 mg PO DAILY 04/10/24
citalopram 30 mg capsule 30 mg PO QPM 04/10/24
fluticasone furoate 200 1 inh inhalation R DAILY 04/10/24
mcg/actuation blister powder for
inhalation (Arnuity Ellipta)
acetaminophen 500 mg tablet 1,000 mg PO Q6HPRN PRN mild pain 04/19/24
(Tylenol Extra Strength)
docusate sodium 100 mg tablet 100 mg PO QPM 04/19/24
(Stool Softener)
gabapentin 100 mg capsule 100 mg PO QPM 04/19/24
lisinopril 40 mg tablet 40 mg PO DAILY 04/19/24
Vital Signs and Labs
-
Vital Signs and Labs:
Vital Signs
Temp Pulse Resp BP Pulse Ox
37.1 C 68 18 154/71 98
04/19/24 19:48 04/19/24 20:09 04/19/24 20:09 04/19/24 19:48 04/19/24 20:09
Lab Results
04/19/24 09:02
04/19/24 09:02
Sodium 132 mmol/L (135-145) L 04/19/24 09:02
Potassium 4.2 mmol/L (3.5-5.1) 04/19/24 09:02
BUN 18 mg/dl (9-20) 04/19/24 09:02
Glucose 168 mg/dl (70-99) H 04/19/24 09:02
Calcium 9.3 mg/dl (8.4-10.2) 04/19/24 09:02
[2024-04-20] VITALS (8 sets, daily range): BP systolic 111–165; BP diastolic 61–82; PULSE 69–93; BMI 30.7
[2024-04-20 06:22] LABS: Hematocrit 39.6 % (39.0-52.0); Mean Corp Hgb Conc. 35.4 g/dL (33.0-37.0); Mean Corpuscular Hgb 29.2 pg (27.0-31.0); Mean Corpuscular Volume 82.5 fL (80.0-94.0); Mean Platelet Volume 9.3 fL (7.4-10.4); Platelet Count 269 10^3/uL (130-400); Red Cell Dist. Width 13.2 % (11.5-14.5); White Blood Cell Count 6.4 10^3/uL (4.8-10.8)
[2024-04-20 07:13] LABS: Blood Urea Nitrogen 16 mg/dl (9-20); Calcium 8.9 mg/dl (8.4-10.2); Carbon Dioxide 23 mmol/L (22-30); Chloride 98 mmol/L (98-107); Estimated Creatinine Clearance 89 ml/min; Glucose 127 mg/dl (70-99); HDL Cholesterol 44 mg/dl; LDL Cholesterol, Calculated 76 mg/dl; Magnesium 1.9 mg/dl (1.6-2.3); Potassium 4.3 mmol/L (3.5-5.1); Sodium 131 mmol/L (135-145); Total Cholesterol 144 mg/dl (50-199); Triglyceride 124 mg/dl (10-149); Very Low Density Lipoprotein 24 mg/dl (0-30); eGFR > 60.00
[2024-04-20 08:15] LABS: Glucose - Point of Care 125 mg/dl (70-99)
[2024-04-20] MEDS: NOVOLOG FLEXPEN-LOW RESISTANCE SC ×3 (08:41→16:57)
[2024-04-20] MEDS: LASIX 40 MG PO (08:42)
[2024-04-20] MEDS: NORVASC 5 MG PO (08:42)
[2024-04-20] MEDS: LIPITOR 40 MG PO (08:42)
[2024-04-20] MEDS: ZESTRIL 40 MG PO (08:42)
[2024-04-20] MEDS: TYLENOL 650 MG PO ×2 (11:06→21:12)
--- NOTE | 2024-04-20 11:08 | W.PN.CARDCBS ---
Addendum entered and electronically signed by Hussain Reyes MD 04/20/24 15:27:
I saw and examined the patient.
The Bench Worker's note was reviewed and I agree with the note.
Comment:
GEN: No distress, awake, Ox3
HEENT: supple, anicteric, mmm
LUNGS: CTA, no wheezes/rales
CV: irreg, S1/S2, 1/6 syst LSB, no gallop
ABD: soft, BS+, NT/ND
EXT: No edema
NEURO: Gross non-focal
SKIN: No rash
PLan:
No clear etiology for further episodes of presyncope. Will continue to follow on telemetry but no events.
With recent subdural bleed we will continue to remain off Xarelto until cleared by neurosurgery.
Would recommend monitor upon discharge.
Blood pressure stable on lisinopril and Norvasc.
Original Note:
Today's Communication / Plan
-
cardiac work up thus far unrevealing for etiology of presyncope
consider for OP cardiac monitoring
consider resuming xarelto if/when cleared by neuro/neurosurgery
will arrange OP cardiac follow up
Impression / Plan
-
Primary Grassroots Organizer: Dr. Rose
Assessment:
presentation with presyncope
Recent fall with scalp laceration and SDH 04/09/24, resulting in transfer to [facility] for trauma eval 04/10/24
Permanent afib
History of ALONDRA clot
OAC with xarelto, presently on hold with above
Chronic HFpEF
HTN
History of vasovagal syncope
HLD
Restrictive lung disease
ECHO 2019: EF 55 to 60%, mildly dilated bilateral atria, mild MR, mild [place]
ECHO 04/19/24: EF 55 to 60%, mild concentric LVH, mildly dilated bilateral atria, mild MR, mild IL, no significant change compared to prior
Plan:
-Patient had recent fall with resultant subdural hematoma for which patient was evaluated at [facility] for trauma 04/10/2024
-presented back with episode of presyncope vs seizure
-neurology started patient back on keppra. plan for serial head CTs.
-hgb stable at 14
-remains in rate controlled afib on review of tele. no significant bradycardia/pauses noted overnight. remains off av marilu blocking agents since [facility] admission due to nocturnal bradycardia. could consider for OP cardiac monitoring
-consider for eventual sleep study
-ortho VS with slight drop from lying to sitting but stable from sitting to standing
-was ambulatory around unit today without symptoms
-echo with results as above, discussed with patient and at bedside today
-remains off xarelto at this time. As subdural hematoma was provoked by fall, could likely consider resuming at some point once cleared by neurology/neurosurgery
-consider eventual watchman, however would need to be able to tolerate short-term anticoagulation to complete this
-will arrange OP cardiac follow up
Progress Note - Grassroots Organizer
Subjective
Date of Service: April 20, 2024
no lightheadedness, dizziness overnight.
Objective
Labs:
04/20/24 06:07
04/20/24 06:07
Labs
Hgb 14.0 g/dL (13.0-18.0) 04/20/24 06:07
Hct 39.6 % (39.0-52.0) 04/20/24 06:07
Plt Count 269 10^3/uL (130-400) 04/20/24 06:07
Sodium 131 mmol/L (135-145) L 04/20/24 06:07
Potassium 4.3 mmol/L (3.5-5.1) 04/20/24 06:07
BUN 16 mg/dl (9-20) 04/20/24 06:07
Creatinine 0.7 mg/dL (0.7-1.3) 04/20/24 06:07
Glucose 127 mg/dl (70-99) H 04/20/24 06:07
Vital Signs and I&O:
Vital Signs
Temp Pulse Resp BP Pulse Ox
98.5 F 60 18 165/82 96
04/20/24 07:00 04/20/24 08:42 04/20/24 07:54 04/20/24 08:42 04/20/24 07:54
Vital Signs
Temp Pulse Resp BP Pulse Ox
98.5 F 60 18 165/82 96
04/20/24 07:00 04/20/24 08:42 04/20/24 07:54 04/20/24 08:42 04/20/24 07:54
Intake & Output
04/18/24 04/19/24 04/20/24 04/21/24
07:59 07:59 07:59 07:59
Intake Total 360 / 360
Output Total 600 / 600
Balance -240 / -240
Physical Exam
Physical Exam
GEN: No distress, awake, alert, oriented x3. sitting in chair
HEENT: supple, anicteric, mmm, eomi
LUNGS: CTA B/L, no wheezes/rales
CV: Irreg, S1/S2, no murmur
ABD: soft, BS+, NT/ND
EXT: No cyanosis, clubbing, edema
NEURO: Gross non-focal
SKIN: Warm, pink, dry. No rash
[2024-04-20 11:14] LABS: Glycohemoglobin (HgbA1c) 7.2 % (4.0-5.6)
[2024-04-20 12:32] LABS: Glucose - Point of Care 147 mg/dl (70-99)
--- NOTE | 2024-04-20 12:35 | CON.NS ---
Consultation
-
Date/Time Consultation Performed: 04/20/2024; 12:35 pm
Performing Provider: Cassandra
Chief Complaint
History of Present Illness
This is an 83-year-old gentleman, known to neurosurgery, who had presented approximately 10 days to the emergency room with nausea, vomiting, and weakness. He had had a fall while on vacation in the [facility] on 04/09/2024. At that time, he felt
that he would awaken from a dream and was startled, causing him to fall off the bed and hit his head. He was on Xarelto. He had a noncontrast head CT which was reportedly normal. He then presented to [place] emergency room with severe headache
after returning from his trip. At that time, he had a CT scan which demonstrated a moderate size left convexity subdural hematoma. He was transferred from [facility] to [facility] where he was closely monitored with repeat
imaging, demonstrating stability of subdural hematoma. His Xarelto was stopped. And he was discharged. He presents again on 04/19/2024 with an episode of feeling weak, dizzy, cold, and clammy. There was no noted seizure activity. He reported that
he had a similar episode approximately 9 months prior. He does have a past medical history of atrial fibrillation, hypertension. He had a noncontrast head CT which demonstrated stable/evolving left convexity subdural hematoma, without any evidence
of new hemorrhage. He was admitted for monitoring.
He was seen by neurology, and cardiology here. He will be continued on Keppra. His Xarelto remains on hold. His cardiac workup has been negative thus far for presyncope.
Patient seen and examined. Family is at bedside. He denies any headache. He did stop his Keppra 3 days prior to presentation. He is now on a ekg monitor tech. He denies any numbness, tingling, or weakness of the right side. He denies any
balance difficulties.
Review of Systems
-
A 10 point review of systems including constitutional, ENT, cardiovascular, respiratory, GI, , hematologic, declot, psychiatric, neurologic was performed, and was negative except for stated in HPI.
Medication and Allergies
Home Medications
Home Medications
�Medication �Instructions �Recorded
amlodipine 5 mg tablet 5 mg PO DAILY Blood Pressure 10/06/13
furosemide 40 mg tablet 40 mg PO DAILY Fluid 10/06/13
Retention/Swelling
atorvastatin 40 mg tablet 40 mg PO DAILY High Cholesterol 04/10/24
citalopram 30 mg capsule 30 mg PO QPM Depression 04/10/24
fluticasone furoate 200 1 inh inhalation R DAILY 04/10/24
mcg/actuation blister powder for Lung/Breathing Issues
inhalation (Arnuity Ellipta)
acetaminophen 500 mg tablet 1,000 mg PO Q6HPRN PRN mild pain 04/19/24
(Tylenol Extra Strength)
docusate sodium 100 mg tablet 100 mg PO QPM Constipation 04/19/24
(Stool Softener)
gabapentin 100 mg capsule 100 mg PO QPM Neurological 04/19/24
Condition
lisinopril 40 mg tablet 40 mg PO DAILY Blood Pressure 04/19/24
Allergies
Allergies
Allergy/AdvReac Type Severity Reaction Status Date / Time
No Known Drug Allergies Allergy Unknown Unknown Verified 04/19/24 08:50
Physical Exam
-
Exam:
Awake, alert, no apparent distress.
Speech is fluent, comprehension intact, repetition is normal.
Pupils are equal and reactive to light.
Extraocular's are full without nystagmus.
Face is symmetric.
Tongue is midline.
Motor: 5/5 strength bilaterally in upper extremities lower extremities with no evidence of pronator drift.
Gait not tested.
Noncontrast CT scan of the head performed on 04/19/2023 was reviewed, and compared with previous CT performed on 04/10/2024. There is evidence of stable left parietotemporal subdural hematoma with evolving blood products. No obvious evidence of
increased brain compression or midline shift is seen. No new hemorrhages seen.
Problems
-
Problem Status Onset Code
Aphasia R47.01
Assessment / Plan
-
This is an 83-year-old gentleman with a history of atrial fibrillation, on Xarelto, who presents for presyncopal event. He was seen at [facility] approximately 10 days prior after having a left subdural hematoma after he had sustained a hit
on the head while fall out of bed on vacation the day prior.
At present time, given imaging findings on 04/19/2024, demonstrating persistent left moderate size subdural hematoma, recommend holding Xarelto x 1 additional week. If follow-up CT scan of the head in 1 week demonstrates stability/improvement, then
can resume Xarelto.
Have advised patient's family to move back his scheduled CT scan which was scheduled for later this week to be pushed back to next week, with subsequent follow-up in the office with us thereafter. Patient's family informed of symptoms to look out
for to suggest symptomatic chronic/chronifying subdural hematoma, and advised to return back to the emergency room should he have any new or recurrent symptoms.
Patient can go home per my specialty: Today
--- NOTE | 2024-04-20 13:35 | W.PN.NEURO.1 ---
Today's Communication / Plan
-
Continue Keppra 1000mg qhs
May dc home
F/u Neurology OP
Neuro Assessment/Plan
Assessment
83 yr. old male with h/o Left SDH s/p CHI
Plan
Continue Keppra 1000mg Qhs for 4 weeks. Taper Keppra 750 mg 4 weeks. Taper Keppra 500mg for 3 months
Restart Eliquis 2.5 mg daily April [address] head before and 48 hours after starting
Eliquis 5 mg Daily May [address] head 48 hours May 04
Subjective/Objective
Subjective Data
Date of Service: April 20, 2024
Mr Lowery is doing well. He has no events overnite. Tolerating Keppra 1000mg hs without issues
Objective Data
Vital Signs
Temp Pulse Resp BP Pulse Ox
36.4 C 74 19 136/70 97
04/20/24 11:00 04/20/24 11:00 04/20/24 11:00 04/20/24 11:00 04/20/24 11:00
Lab Results
04/20/24 06:07
04/20/24 06:07
Sodium 131 mmol/L (135-145) L 04/20/24 06:07
Potassium 4.3 mmol/L (3.5-5.1) 04/20/24 06:07
BUN 16 mg/dl (9-20) 04/20/24 06:07
Glucose 127 mg/dl (70-99) H 04/20/24 06:07
Calcium 8.9 mg/dl (8.4-10.2) 04/20/24 06:07
LDL Cholesterol, Calc 76 mg/dl 04/20/24 06:07
Patient Allergies
No Known Drug Allergies Allergy (Unknown, Verified 04/19/24 08:50)
Unknown
Review of Systems
-
History Source: Patient
All other systems: Reviewed and negative
Physical Exam
-
General: Well Developed, Well Nourished, No Apparent Distress and Comfortable
Eyes: Able to visualize OU
HEENT: Normocephalic and Atraumatic
Respiratory: Clear to Auscultation
Cardiac: Regular Rhythm
GI: Normal Bowel Sounds
Skin: Unremarkable
Extremities: No Clubbing, No Cyanosis and No Edema
Psych: Unremarkable
Extended Neurological Exam
Mood & Affect: Mood Unremarkable
Attention Span & Concentration: Awake, Alert, Interactive and No Difficulty with 2 Step Request
Memory: Unremarkable
Tremor: Hand Tremor Absent and Head Tremor Absent
Involuntary Movement: None
Speech: Quality Unremarkable, Quantity Unremarkable and Rate of Production Unremarkable
Cranial Nerve II: Left Eye: Pupillary Reactivity Unremarkable, Pupillary Size Unremarkable and Visual Nelson Grossly Intact
Cranial Nerve II: Right Eye: Pupillary Reactivity Unremarkable, Pupillary Size Unremarkable and Visual Nelson Grossly Intact
Cranial Nerves III, IV, : Extraocular Movement: Extraocular Movement Full in all Directions
Cranial Nerve V: Facial Sensation: Intact to Pin Prick and Intact to Light Touch
Cranial Nerve VII: Facial Symmetry: Normal Facial Symmetry
Cranial Nerve VIII: Hearing: Unremarkable Hearing to Normal Conversational Volume
Cranial Nerves IX, X: Palate Movement: Palate Elevation Symmetric
Cranial Nerve XI: Shoulder Shrug: Unremarkable
Cranial Nerve XII: Tongue Protusion: Midline
Muscle Strength, Overall: Full Throughout
Muscle Bulk & Tone: Bulk Unremarkable and Tone Unremarkable
Pronator Drift: No Drift in Upper Extremities and No Drift in Lower Extremities
Deep Tendon Reflexes: Unremarkable Throughout
Cold Sensation: Unremarkable
Vibration Sensation: Unremarkable
Touch Sensation: Unremarkable
Coordination: Bkjkct-[id number]-dfykfk Testing Unremarkable
Babinski Sign: Absent Bilaterally
Modified Lander Score (MRS)
-
Modified Kyra Scale (mRS): No significant disability. Able to carry out usual activities.
Score: 1
--- NOTE | 2024-04-20 14:50 | W.PN.HOSP.TC ---
Addendum entered and electronically signed by Crescencio Payton MD 04/20/24 15:08:
Pt noted to have Hga1c 7.2%
Original Note:
Today's Communication/Plan
-
continue DOAC's on hold
further cardiac eval post dc
Assessment / Plan
Assessment / Plan
Dizziness, possibly Near-Syncope/Syncope due to arrhythmia vs orthostasis
-Consult Neurology and Cardiology
-Check Orthostatic Vital Signs
-Echocardiogram: Normal left ventricular size and systolic function. No regional wall motion
abnormalities are seen. LV ejection fraction is 55-60% by visual assessment.
Mild concentric left ventricular hypertrophy.
Mildly dilated left atrium.
Mildly dilated right atriumMild mitral regurgitation.
Mild pulmonic regurgitation.
-Reviewed with neurology
Recommendations are for 1) Keppra 1000 mg qhs x 1 month, then 750 qhs x 1 month, then 500 mg qhs for 4 mos
2) repeat CT scan of head next Wednesday 04/18, if no recent bleed, to start Eliquis2.5 mg bid, then repeat CT scan in 48 hrs, if neg increase to 5 mg bid and repeat CT after 48 hrs (not Xarelto!!!!)
Recent Subdural Hematoma
-Consult Neurology/Neurosurgery
-Xarelto currently on hold
-Continue Keppra as recommended by Neurology
Permanent Atrial Fibrillation
-Consult Cardiology
-Monitor on Telemetry
Chronic Diastolic Heart Failure
-Continue Lasix
-Monitor Is&Os and Daily Weights
Essential Hypertension
-Continue amlodipine and lisinopril with hold parameters
Hyperlipidemia
-Continue atorvastatin
Diabetes Mellitus, Type II
-Check HgbA1c
-Monitor sugars and continue coverage insulin
Asthma/Reactive Airway Disease
-Continue fluticasone
Depression
-Continue citalopram
Chronic Hyponatremia
-Sodium level appears stable from previous
DVT proph: SCDs
PT input appreciated with recommendations for outpt PT
discussed with Dr. Carter, will change to full admit
Code Status: Full Code
Anticipated Discharge: 24 - 48 hours
Subjective/Interval History
-
Date of Service: April 20, 2024
No dizziness
Objective Data
-
Labs:
Laboratory Results
04/20/24
06:07
WBC 6.4
Hgb 14.0
Hct 39.6
Plt Count 269
Sodium 131 L
Potassium 4.3
Chloride 98
Carbon Dioxide 23
BUN 16
Creatinine 0.7
Glucose 127 H
Calcium 8.9
Vital Signs:
Vital Signs
Temp Pulse Resp BP Pulse Ox
97.5 F 74 19 136/70 97
04/20/24 11:00 04/20/24 11:00 04/20/24 11:00 04/20/24 11:00 04/20/24 11:00
I&O
04/19/24 04/20/24 04/21/24
06:59 06:59 06:59
Intake Total 360 / 360
Output Total 600 / 600
Balance -240 / -240
Review of Systems
-
History Source: Patient, Family ( in room) and Physician (reviewed with Dr. Lara)
Constitutional: Reports No Symptoms; Denies Fever
EENT: Reports No Symptoms Reported
Respiratory: Reports No Symptoms
Cardiac: Reports No Symptoms
Abdomen/GI: Reports No Symptoms
Musculoskeletal: Reports No Symptoms
Physical Exam
-
General: Well Developed, Well Nourished and No Apparent Distress
HEENT: Normocephalic, Atraumatic and Moist Mucous Membranes
Respiratory: Clear to Auscultation; Negative Wheezes, Rales or Rhonchi
Cardiac: Irregular Rhythm
GI: Nontender and Nondistended
Musculoskeletal: No Clubbing, No Cyanosis and No Edema
Neuro: Alert and Oriented
[2024-04-20 16:46] LABS: Glucose - Point of Care 118 mg/dl (70-99)
[2024-04-20] MEDS: CELEXA 30 MG PO (17:04)
[2024-04-20] MEDS: NEURONTIN 100 MG PO (17:04)
[2024-04-20] MEDS: KEPPRA 1000 MG PO (21:06)
[2024-04-20 21:39] LABS: Glucose - Point of Care 151 mg/dl (70-99)
[2024-04-21 03:25] VITALS: BP 124/58
[2024-04-21 07:00] VITALS: BP 148/77
[2024-04-21 07:47] VITALS: BMI 30.7
--- NOTE | 2024-04-21 08:36 | W.PN.NEURO.1 ---
Documented by User: Kristy Banuelos NP 04/21/24 13:11
Today's Communication / Plan
-
.
Neuro Assessment/Plan
Assessment
Mr. PRIYANK SOSA is a 83 year old M who has presented to the hospital with near syncope on 04/19/24; recent h/o traumatic left SDH while on Xarelto for Afib on 04/09/24.
-CT head 04/19/24: Stable 9 mm acute/subacute left frontotemporal parietal subdural hematoma with compression of the underlying gyri, not significantly changed when compared with the 04/10/2024 study. There is persistent acute/subacute high density
hemorrhage within this collection.
I. Recent fall with head trauma on 04/09/24 with resultant SDH, while on Xarelto.
II. Seizure vs near syncope. Prolonged period to return to baseline mentation following this event.
III. Afib, OAC on hold due to SDH.
Plan
-Continue Keppra 1000mg HS for 4 weeks. Taper Keppra 750 mg HS 4 weeks. Taper Keppra 500mg HS for 3 months.
-Discontinue Xarelto and plan to start Eliquis 2.5 mg BID 04/25/24; CT head noncontrast before and 48 hours after starting for stability check. Patient will need script for imaging on discharge.
-Increase to full dose Eliquis 5 mg BID 05/02/24, repeat CT head noncontrast on 05/04/24 for stability check.
-Patient has a follow-up appt scheduled with Neurosurgery on 05/05/24.
-Tylenol PRN headache. Reviewed red flag headache and stroke symptoms with patient/family.
-Neurological checks per unit guidelines.
-Provide patient with a stroke education packet.
-PT/OT/ST
-DVT prophylaxis.
-Neurology will follow PRN, please call our service with any questions/concerns.
-Patient needs to follow-up with Neurology in the next 1-2 weeks.
Subjective/Objective
Subjective Data
Date of Service: April 21, 2024
No acute events overnight. Patient reports a mild headache today that is relieved by Tylenol, he reports new daily mild headaches for the past week or so. He denies any dizziness, vision changes, speech/swallow difficulty, numbness, weakness, chest
pain, palpitations, and shortness of breath.
Objective Data
Vital Signs
Temp Pulse Resp BP Pulse Ox
98.5 F 80 18 148/77 96
04/21/24 07:00 04/21/24 08:18 04/21/24 08:18 04/21/24 07:00 04/21/24 08:18
Lab Results
04/20/24 06:07
04/20/24 06:07
Sodium 131 mmol/L (135-145) L 04/20/24 06:07
Potassium 4.3 mmol/L (3.5-5.1) 04/20/24 06:07
BUN 16 mg/dl (9-20) 04/20/24 06:07
Glucose 127 mg/dl (70-99) H 04/20/24 06:07
Calcium 8.9 mg/dl (8.4-10.2) 04/20/24 06:07
LDL Cholesterol, Calc 76 mg/dl 04/20/24 06:07
Patient Allergies
No Known Drug Allergies Allergy (Unknown, Verified 04/19/24 08:50)
Unknown
Review of Systems
-
History Source: Patient
EENT: Negative Blurry Vision, Decreased Vision or Swallowing Difficulty
Respiratory: Negative Cough or Trouble Breathing
Cardiac: Negative Chest Pain or Palpitations
Abdomen/GI: Negative Nausea
Neuro: Headache; Negative Dizzy, Weakness, Numbness, Ataxia, Tremors or Speech Problem
Physical Exam
-
General: Well Developed, Well Nourished and No Apparent Distress
Eyes: No Ptosis and PERRLA
HEENT: Normocephalic and Atraumatic
Neck: Full Range of Motion
Respiratory: No Dyspnea
GI: Non-distended
Extremities: No Clubbing, No Cyanosis and No Edema
Psych: Unremarkable
Extended Neurological Exam
Mood & Affect: Mood Unremarkable and Affect Unremarkable
Attention Span & Concentration: Awake, Alert and Interactive
Memory: Unremarkable (AAOx3)
Tremor: Hand Tremor Absent and Head Tremor Absent
Involuntary Movement: None
Speech: Quality Unremarkable, Quantity Unremarkable and Rate of Production Unremarkable
Cranial Nerve II: Left Eye: Pupillary Reactivity Unremarkable, Pupillary Size Unremarkable and Visual Nelson Intact
Cranial Nerve II: Right Eye: Pupillary Reactivity Unremarkable, Pupillary Size Unremarkable and Visual Nelson Intact
Cranial Nerves III, IV, : Extraocular Movement: Extraocular Movement Full in all Directions
Cranial Nerve V: Facial Sensation: Intact to Light Touch
Cranial Nerve VII: Facial Symmetry: Normal Facial Symmetry
Cranial Nerves IX, X: Palate Movement: Palate Elevation Symmetric
Cranial Nerve XI: Shoulder Shrug: Unremarkable
Cranial Nerve XII: Tongue Protusion: Midline
Muscle Strength, Overall: Full Throughout
Pronator Drift: No Drift in Upper Extremities and No Drift in Lower Extremities
Touch Sensation: Double Simultaneous Stimulation Unremarkable
Coordination: [id number]-[id number] Testing Unremarkable
Babinski Sign: Absent Bilaterally
Data Reviewed
-
CT Head: Report Reviewed and Image Reviewed
Labs: Report Reviewed
Reviewed with: Physician, Patient and Family

Documented by User: Valdo Lara MD 04/21/24 21:13
Today's Communication / Plan
-
Pat to be discharged. Will provide CT head scripts
Neuro Assessment/Plan
Plan
-Continue Keppra 1000mg HS for 4 weeks. Taper Keppra 750 mg HS 4 weeks. Taper Keppra 500mg HS for 3 months.
-Discontinue Xarelto and plan to start Eliquis 2.5 mg daily 04/25/24; CT head noncontrast before and 48 hours after starting for stability check. Patient will need script for imaging on discharge.
-Increase to full dose Eliquis 5 mg daily 05/02/24, repeat CT head noncontrast on 05/04/24 for stability check.
-Patient has a follow-up appt scheduled with Neurosurgery on 05/05/24.
-Tylenol PRN headache. Reviewed red flag headache and stroke symptoms with patient/family.
-Neurological checks per unit guidelines.
-Provide patient with a stroke education packet.
-PT/OT/ST
-DVT prophylaxis.
-Neurology will follow PRN, please call our service with any questions/concerns.
-Patient needs to follow-up with Neurology in the next 1-2 weeks.
[2024-04-21] MEDS: ZESTRIL 40 MG PO (08:37)
[2024-04-21] MEDS: LIPITOR 40 MG PO (08:37)
[2024-04-21] MEDS: LASIX 40 MG PO (08:38)
[2024-04-21] MEDS: TYLENOL 650 MG PO (08:38)
[2024-04-21] MEDS: NORVASC 5 MG PO (08:38)
[2024-04-21] MEDS: NOVOLOG FLEXPEN-LOW RESISTANCE SC ×2 (08:48→16:36)
[2024-04-21 08:49] LABS: Glucose - Point of Care 127 mg/dl (70-99)
--- NOTE | 2024-04-21 09:56 | W.PN.CARDCBS ---
Addendum entered and electronically signed by Hussain Reyes MD 04/21/24 13:47:
I saw and examined the patient.
The [employer] Furn[employer] Expediter's note was reviewed and I agree with the note.
Comment:
GEN: No distress, awake, Ox3
HEENT: supple, anicteric, mmm
LUNGS: CTA, no wheezes/rales
CV: irreg, S1/S2, 1/6 syst LSB, no gallop
ABD: soft, BS+, NT/ND
EXT: No edema
NEURO: Gross non-focal
SKIN: No rash
Plan:
Difficult case as he has recent subdural hematoma and permanent atrial fibrillation. He also has a history of left atrial pended thrombus.
Agree with neuro plan to restart anticoagulation with close monitoring of head CT.
He has had no further pauses or explanations for his presyncope. Will proceed with outpatient monitor.
Blood pressure is overall stable.
Original Note:
Today's Communication / Plan
-
OP director video to be placed prior to DC
plan to resume OAC as outlined by neuro
eventual OP sleep study
OP cardiac follow up arranged
Impression / Plan
-
Primary Operator Electronic Warfare: Dr. Rose
Assessment:
presentation with presyncope
Recent fall with scalp laceration and SDH 04/09/24, resulting in transfer to [facility] for trauma eval 04/10/24
Permanent afib
History of ALONDRA clot
OAC with xarelto, presently on hold with above
Chronic HFpEF
HTN
History of vasovagal syncope
HLD
Restrictive lung disease
ECHO 2019: EF 55 to 60%, mildly dilated bilateral atria, mild MR, mild NJ
ECHO 04/19/24: EF 55 to 60%, mild concentric LVH, mildly dilated bilateral atria, mild MR, mild NJ, no significant change compared to prior
Plan:
-Patient had recent fall with resultant subdural hematoma for which patient was evaluated at [facility] for trauma 04/10/2024
-presented back with episode of presyncope vs seizure
-neurology started patient back on keppra.
-hgb stable at 14 as of 04/20
-remains in rate controlled afib on review of tele. with some transient bradycardia and occasional pauses which all appear to be 2.5 seconds or less on review of tele overnight. remains off av marilu blocking agents since [facility] admission due to
nocturnal bradycardia. will plan for OP director video to follow
-consider for eventual sleep study
-ortho VS with slight drop from lying to sitting but stable from sitting to standing both 04/20 and 04/21
-echo with results as above
-remains off xarelto at this time. plan for OAC per neurology: Restart Eliquis 2.5 mg BID April [address] head before and 48 hours after starting, then increase Eliquis 5 mg BID May [address] head 48 hours post on May 04
-consider eventual watchman candidacy
-OP cardiac follow up arranged
-ok for DC from cardiac standpoint today
Progress Note - Operator Electronic Warfare
Subjective
Date of Service: April 21, 2024
no issues overnight. denies CP, SOB, palpitations, lightheadedness
Objective
Labs:
04/20/24 06:07
04/20/24 06:07
Labs
Hgb 14.0 g/dL (13.0-18.0) 04/20/24 06:07
Hct 39.6 % (39.0-52.0) 04/20/24 06:07
Plt Count 269 10^3/uL (130-400) 04/20/24 06:07
Sodium 131 mmol/L (135-145) L 04/20/24 06:07
Potassium 4.3 mmol/L (3.5-5.1) 04/20/24 06:07
BUN 16 mg/dl (9-20) 04/20/24 06:07
Creatinine 0.7 mg/dL (0.7-1.3) 04/20/24 06:07
Glucose 127 mg/dl (70-99) H 04/20/24 06:07
Vital Signs and I&O:
Vital Signs
Temp Pulse Resp BP Pulse Ox
98.5 F 80 18 148/77 96
04/21/24 07:00 04/21/24 08:18 04/21/24 08:18 04/21/24 07:00 04/21/24 08:18
Vital Signs
Temp Pulse Resp BP Pulse Ox
98.5 F 80 18 148/77 96
04/21/24 07:00 04/21/24 08:18 04/21/24 08:18 04/21/24 07:00 04/21/24 08:18
Intake & Output
04/19/24 04/20/24 04/21/24 04/22/24
07:59 07:59 07:59 07:59
Intake Total 360 / 360 900 / 900
Output Total 600 / 600 1000 / 1000
Balance -240 / -240 -100 / -100
Physical Exam
Physical Exam
GEN: No distress, awake, alert, oriented x3. sitting in chair
HEENT: supple, anicteric, mmm, eomi
LUNGS: CTA B/L, no wheezes/rales
CV: Irreg, S1/S2, no murmur
ABD: soft, BS+, NT/ND
EXT: No cyanosis, clubbing, edema
NEURO: Gross non-focal
SKIN: Warm, pink, dry. No rash
[2024-04-21 11:00] VITALS: BP 133/66
[2024-04-21 12:28] LABS: Glucose - Point of Care 199 mg/dl (70-99)
[2024-04-21] MEDS: NOVOLOG FLEXPEN-LOW RESISTANCE 1 UNITS SC (12:30)
[2024-04-21 14:01] VITALS: BP 110/65; PULSE 81
[2024-04-21 15:00] VITALS: BP 117/63
[2024-04-21 16:34] LABS: Glucose - Point of Care 113 mg/dl (70-99)
--- NOTE | 2024-04-21 16:57 | W.PN.HOSP.TC ---
Today's Communication/Plan
-
dc to home
Assessment / Plan
Assessment / Plan
Dizziness, possibly Near-Syncope/Syncope due to arrhythmia vs orthostasis
-Input of Neurology and Cardiology appreciated
-Echocardiogram: Normal left ventricular size and systolic function. No regional wall motion
abnormalities are seen. LV ejection fraction is 55-60% by visual assessment.
Mild concentric left ventricular hypertrophy.
Mildly dilated left atrium.
Mildly dilated right atrium Mild mitral regurgitation.
Mild pulmonic regurgitation.
-Reviewed with neurology
Recommendations are for 1) Keppra 1000 mg qhs x 1 month, then 750 qhs x 1 month, then 500 mg qhs for 4 mos
2) repeat CT scan of head next Wednesday 04/25, if no recent bleed, to start Eliquis 2.5 mg daily, then repeat CT scan in 48 hrs, if neg increase to 5 mg daily and repeat CT after 48 hrs (not Xarelto!!!!) if that is stable, increase to 5 mg bid
Recent Subdural Hematoma
-Consult Neurology/Neurosurgery
-Xarelto currently on hold
-Continue Keppra as recommended by Neurology
Permanent Atrial Fibrillation
-Consult Cardiology
-Monitor on Telemetry
Chronic Diastolic Heart Failure
-Continue Lasix
-Monitor Is&Os and Daily Weights
Essential Hypertension
-Continue amlodipine and lisinopril with hold parameters
Hyperlipidemia
-Continue atorvastatin
Diabetes Mellitus, Type II
-Check HgbA1c
-Monitor sugars and continue coverage insulin
Asthma/Reactive Airway Disease
-Continue fluticasone
Depression
-Continue citalopram
Chronic Hyponatremia
-Sodium level appears stable from previous
DVT proph: SCDs
PT input appreciated with recommendations for outpt PT
discussed with Dr. Carter, will change to full admit
Code Status: Full Code
dc to home
More than 30 minutes spent in discharge including
Final examination of the patient
Summarizing hospital stay
Instructions for continuing care to all relevant caregivers
Preparation of discharge records, prescriptions, and referral forms
Total time spent (in minutes): 45
Anticipated Discharge: Today
Subjective/Interval History
-
Date of Service: April 21, 2024
Dizziness has improved
Objective Data
-
Vital Signs:
Vital Signs
Temp Pulse Resp BP Pulse Ox
97.6 F 83 16 117/63 96
04/21/24 15:00 04/21/24 15:00 04/21/24 15:00 04/21/24 15:00 04/21/24 15:00
I&O
04/20/24 04/21/24 04/22/24
06:59 06:59 06:59
Intake Total 360 / 360 900 / 900
Output Total 600 / 600 1000 / 1000
Balance -240 / -240 -100 / -100
Review of Systems
-
History Source: Patient, Family ( and dgt in room) and Physician (reviewed with Dr. Lara)
Constitutional: Reports No Symptoms; Denies Fever
EENT: Reports No Symptoms Reported
Respiratory: Reports No Symptoms
Cardiac: Reports No Symptoms
Abdomen/GI: Reports No Symptoms
Musculoskeletal: Reports No Symptoms
Physical Exam
-
General: Well Developed, Well Nourished and No Apparent Distress
HEENT: Normocephalic, Atraumatic and Moist Mucous Membranes
Respiratory: Clear to Auscultation; Negative Wheezes, Rales or Rhonchi
Cardiac: Irregular Rhythm
GI: Nontender and Nondistended
Musculoskeletal: No Clubbing, No Cyanosis and No Edema
Neuro: Alert and Oriented
Psych: Calm
--- NOTE | 2024-04-21 17:32 | CM ---
met with patient and his wifeat bedside.patient lives with in house with 3ste,his bed and bath is on the first level,he ambulates with a rw.he i I with his adl.his pcp is dr elicia moss and he uses [facility] in [facility].he has never had a
vn or been to ip rheab.
patient is adm after a recent sdh with dizziness.he was seen by neuro,started on keppra,cardiology will place an op cardiac tech.repeat head ct done on 04/25.patient to start eliquis as op.patient will dc home with vn from [facility].referral sent via
careport.
--- NOTE | 2024-04-21 18:10 | W.DS.TRANS ---
DC Summary - Cargo Services Coordinator
-
Discharge Instructions:
Sleep Apnea Risk Intermediate
Discharge Diagnosis/Procedures Syncope
Diet No added salt,Restrict fluids to 64 oz
Activity No strenuous activity
Driving Restrictions No driving
Bathing Restrictions None
Other Services VN,PT
Instructions:
Stand-Alone Forms:
Changes to Home Medications: Yes
Discharge Medications:
DC Medications w/original date entered in [employer]
amlodipine 5 mg tablet 5 mg PO DAILY Blood Pressure 10/06/13
furosemide 40 mg tablet 40 mg PO DAILY Fluid Retention/Swelling 10/06/13
atorvastatin 40 mg tablet 40 mg PO DAILY High Cholesterol 04/10/24
citalopram 30 mg capsule 30 mg PO QPM Depression 04/10/24
fluticasone furoate 200 mcg/actuation blister powder for inhalation (Arnuity Ellipta) 1 inh inhalation R DAILY Lung/Breathing Issues 04/10/24
acetaminophen 500 mg tablet (Tylenol Extra Strength) 1,000 mg PO Q6HPRN PRN mild pain 04/19/24
docusate sodium 100 mg tablet (Stool Softener) 100 mg PO QPM Constipation 04/19/24
gabapentin 100 mg capsule 100 mg PO QPM Neurological Condition 04/19/24
lisinopril 40 mg tablet 40 mg PO DAILY Blood Pressure 04/19/24
apixaban 2.5 mg tablet (Eliquis) 2.5 mg PO BID #60 tabs 04/21/24
levetiracetam 500 mg tablet 1,000 mg (2 x 500 mg) PO HS #0 tabs 04/21/24
Home Medication Changes
Eliquis low dose started, Keppra resumed
Pending Results: No
--- NOTE | 2024-04-22 08:14 | PN.CDI ---
CDI
- -
CDI:
Physician Documentation Request
Admit Date: 04/20/24 15:06
Dear Doctor Cassandra,
Clinical Indicators:
Patient admitted with presyncope; PMH includes traumatic subdural hematoma 04/09/24.
04/19 CT Report, 'Stable 9 mm acute/subacute left frontotemporal parietal subdural hematoma with compression of the underlying gyri, not significantly changed when compared with the 04/10/2024 study.'
03/29 Neurosurgery Consult, 'At present time, given imaging findings on 04/19/2024, demonstrating persistent left moderate size subdural hematoma...Patient's family informed of symptoms to look out for to suggest symptomatic chronic/chronifying
subdural hematoma'
Please clarify which of the following accurately represents the acuity of the traumatic subdural hematoma. Possible options might include:
Acute
Subacute
Chronic stable condition
Other, please specify
Use of terms such as suspected, likely, concern for, or probable (associated with a specific diagnosis that is being evaluated, monitored, or treated as if it exists) are acceptable and can be coded in the inpatient setting, when documented at the
time of discharge.
Thank you,
Ignacia Godinez RN BSN
CDI Specialist
available via tiger text
Please use your independent medical judgment in providing your response.
--- NOTE | 2024-04-25 08:01 | W.PN.UPDATE ---
Update Note
Progress Note Update
Patient presented with subacute persistent subdural hematoma.
== END 2024-04-21 17:55 | disposition home health service (06) | DRG 308 ==
LOC: 3 WEST ACU 15:06
PROVIDERS: Physician Assistant Medical; ADMITTING PHYSICIAN Internal Medicine; CONSULT PHYSICIAN Psychiatry & Neurology Neurology; EMERGENCY PHYSICIAN Student in an Organized Health Care Education/Training Program; FAMILY PHYSICIAN Family Medicine; OTHER PHYSICIAN Internal Medicine Cardiovascular Disease; OTHER PHYSICIAN Neurological Surgery
DX: I48.21 Permanent atrial fibrillation (principal); I62.02 Nontraumatic subacute subdural hemorrhage; E87.1 Hypo-osmolality and hyponatremia; I50.32 Chronic diastolic (congestive) heart failure; R47.01 Aphasia; I11.0 Hypertensive heart disease with heart failure; E11.9 Type 2 diabetes mellitus without complications; J45.909 Unspecified asthma, uncomplicated; F32.A Depression, unspecified; E78.5 Hyperlipidemia, unspecified; R29.701 NIHSS score 1; Z79.899 Other long term (current) drug therapy; Z91.81 History of falling
CPT/HCPCS: 70450; 80048; 80053; 80061; 82962; 83036; 83735; 85025; 85027; 93005; 93306; 94640; 97116; 97162; 97166; 99285

== ENCOUNTER → 2024-04-25 15:16 | Outpatient (REF) | payer OTHER, SELFPAY | LOC: RAD 15:16 | PROVIDERS: ATTENDING PHYSICIAN Registered Nurse Critical Care Medicine; FAMILY PHYSICIAN Family Medicine | DX: S06.5XAA Traumatic subdural hemorrhage with loss of consciousness status unknown, initial encounter (principal) | CPT/HCPCS: 70450 ==

== ENCOUNTER → 2024-05-04 14:05 | Outpatient (REF) | payer OTHER, SELFPAY | LOC: RAD 14:05 | PROVIDERS: ATTENDING PHYSICIAN Neurological Surgery; FAMILY PHYSICIAN Family Medicine | DX: S06.5XAA Traumatic subdural hemorrhage with loss of consciousness status unknown, initial encounter (principal) | CPT/HCPCS: 70450 ==

== ENCOUNTER 2024-06-14 11:48 | Emergency (ER) | payer OTHER, SELFPAY ==
[2024-06-14] VITALS (7 sets, daily range): BP systolic 105–125; BP diastolic 63–86
[2024-06-14 12:17] LABS: % Basophils 0.5 % (0-2); % Eosinophils 1.6 % (0-6); % Immature Granulocytes 0.2 % (0-0.5); % Lymphocytes 13.6 % (20.5-51.1); % Monocytes 6.2 % (1.7-9.3); % Neutrophils 77.9 % (42.2-75.2); Absolute Eosinophils 0.1 10^3/uL (0-0.7); Absolute Lymphocytes 1.1 10^3/uL (1.2-3.4); Absolute Monocytes 0.5 10^3/uL (0.1-0.6); Absolute Neutrophils 6.3 10^3/uL (1.4-6.5); Hematocrit 39.2 % (39.0-52.0); Hemoglobin 13.6 g/dL (13.0-18.0); Mean Corp Hgb Conc. 34.7 g/dL (33.0-37.0); Mean Corpuscular Volume 86.5 fL (80.0-94.0); Mean Platelet Volume 9.8 fL (7.4-10.4); Nucleated Red Blood Cells % 0 % (-); Platelet Count 250 10^3/uL (130-400); Red Blood Cell Count 4.53 10^6/uL (4.70-6.10); Red Cell Dist. Width 13.7 % (11.5-14.5); White Blood Cell Count 8.1 10^3/uL (4.8-10.8)
[2024-06-14 12:30] LABS: ALT (SGPT) 18 U/L (0-50); AST (SGOT) 18 U/L (17-59); Albumin 4.2 g/dl (3.5-5.0); Alkaline Phosphatase 102 U/L (38-126); Blood Urea Nitrogen 23 mg/dl (9-20); Calcium 9.3 mg/dl (8.4-10.2); Carbon Dioxide 28 mmol/L (22-30); Chloride 97 mmol/L (98-107); Glucose 130 mg/dl (70-99); Potassium 4.1 mmol/L (3.5-5.1); Sodium 136 mmol/L (135-145); Total Bilirubin 0.7 mg/dl (0.2-1.3); Total Protein 6.9 g/dl (6.3-8.2); eGFR > 60.00
--- NOTE | 2024-06-14 14:06 | ED.GENMED ---
History of Present Illness
<Sabrina Mcmillan MD, Resident - Last Filed: 06/18/24 19:30>
General
Chief Complaint: Fainting Sensation
Source: patient and spouse
Exam Limitations: none
Time Seen by Provider: 06/14/24 12:58
Nursing documentation reviewed up to this point in time: agreed with
History of Present Illness
History of Present Illness:
83-year-old male with history of traumatic subdural hematoma, permanent A-fib on Eliquis, left atrial appendage clot, hypertension, who presents to the ED for lightheadedness and flushing. Patient was at his physical therapy today doing some
exercises when he started to get flushed, observed by physical therapist. He then went to the bathroom where he experienced worsening lightheadedness with SOB and cold sensation while having a bowel movement. He felt he was going to pass out if he
marium on his own from the toilet. He was helped off the toilet and when EMS arrives, his BP was noted to be 90/60. There was no loss of consciousness, confusion or head trauma. He received a flu shot 1 week ago but denies any recent illness or sick
contacts. He has had normal food and fluid intake (fluid restriction to 64oz) but reports thirst and general tiredness.
He denies chest pain/palpitations, current shortness of breath, joint/muscle aches, headaches, fever, urinary symptoms, nausea/vomiting or diarrhea
Past History
<Sabrina Mcmillan MD, Resident - Last Filed: 06/18/24 19:30>
Past History
ED Past Medical History: Arrthythmia (Atrial fibrillation), HTN, Hypercholesterolemia and Other (: Polyps)
ED Past Surgical History: Other (History of colon polyps and removal of 12/04/2011, and carpal tunnel surgery)
Social History
Tobacco: Non-smoker
Alcohol: None
Personal:
Living: with family
Employment: Retired
Review of Systems
<Sabrina Mcmillan MD, Resident - Last Filed: 06/18/24 19:30>
Review of Systems
Allergies reviewed?: Yes
Constitutional: Reports fatigue; Denies fever
Respiratory: Reports other (no SOB); Denies trouble breathing
Cardiac: Denies chest pain or palpitations
ABD/GI: Denies abdominal pain, nausea, vomiting, diarrhea or constipated
: Denies dysuria, frequency, flank pain, difficulty voiding or bleeding
Musculoskeletal: Denies joint pain, joint swelling or muscle pain
Neurological: Denies headache, weakness or numbness
Phy Exam
<Sabrina Mcmillan MD, Resident - Last Filed: 06/18/24 19:30>
General Physical Exam
General Presentation: well appearing and no apparent distress
General Skin: warm and dry
General Habitus: normal
General Mental: alert
General Hydration: dry mucous membranes
ENT Exam
ENT Exam: EOMI, pharynx normal and normocephalic
Cardiovascular Exam
Cardiovascular Exam: no edema, no gallop, no murmur, normal peripheral pulses and irregularly irregular
Pulmonary Exam
Pulmonary Exam: lungs clear, no respiratory distress, no rales, no crackles, no rhonchi, no wheezing and no cough
Gastrointestinal Exam
Gastrointestinal Exam: normal bowel sounds, non tender, soft, non distended and no cva tenderness
Course
<Sabrina Mcmillan MD, Resident - Last Filed: 06/18/24 19:30>
Orders/Labs/Results
Orders:
Orders
06/14/24
Electrocardiogram (*1) Stat
Reason for Study: Chest Pain
Comment: already done
06/14/24 12:01
Complete Blood Count/With Diff Urgent
Comprehensive Metabolic Panel Urgent
Magnesium Urgent
Comment: MAG ADDED ON BY FLOOR 2PM 06-14-24
06/14/24 14:05
Electrocardiogram (*1) Stat
Reason for Study: QTc Monitoring
EKG- Treatment ONCE
06/14/24 14:07
Add On- LAB Urgent
Tests Added?: mag
Abnormal Lab Results
06/14/24
12:01
RBC 4.53 L 10^6/uL
(4.70-6.10)
Absolute Lymphs (auto) 1.1 L 10^3/uL
(1.2-3.4)
Neutrophils % 77.9 H %
(42.2-75.2)
Lymphocytes % 13.6 L %
(20.5-51.1)
Chloride 97 L mmol/L
(98-107)
BUN 23 H mg/dl
(9-20)
Glucose 130 H mg/dl
(70-99)
06/14/24 12:01
06/14/24 12:01
Vital Signs
Initial and Last Documented VS:
Initial Vital Signs
Temp Pulse Resp BP Pulse Ox
97.7 F 64 18 120/63 99
06/14/24 11:51 06/14/24 11:51 06/14/24 11:51 06/14/24 11:51 06/14/24 11:51
Last Documented Vital Signs
Temp Pulse Resp BP Pulse Ox
97.7 F 56 16 122/67 99
06/14/24 11:51 06/14/24 16:15 06/14/24 16:15 06/14/24 16:00 06/14/24 11:51
Edwarlt;Sanju Ham, - Last Filed: 06/20/24 06:59>
Orders/Labs/Results
Orders:
Orders
06/14/24
Electrocardiogram (*1) Stat
Reason for Study: Chest Pain
Comment: already done
06/14/24 12:01
Complete Blood Count/With Diff Urgent
Comprehensive Metabolic Panel Urgent
Magnesium Urgent
Comment: MAG ADDED ON BY FLOOR 2PM 06-14-24
06/14/24 14:05
Electrocardiogram (*1) Stat
Reason for Study: QTc Monitoring
EKG- Treatment ONCE
06/14/24 14:07
Add On- LAB Urgent
Tests Added?: mag
Abnormal Lab Results
06/14/24
12:01
RBC 4.53 L 10^6/uL
(4.70-6.10)
Absolute Lymphs (auto) 1.1 L 10^3/uL
(1.2-3.4)
Neutrophils % 77.9 H %
(42.2-75.2)
Lymphocytes % 13.6 L %
(20.5-51.1)
Chloride 97 L mmol/L
(98-107)
BUN 23 H mg/dl
(9-20)
Glucose 130 H mg/dl
(70-99)
06/14/24 12:01
06/14/24 12:01
Vital Signs
Initial and Last Documented VS:
Initial Vital Signs
Temp Pulse Resp BP Pulse Ox
97.7 F 64 18 120/63 99
06/14/24 11:51 06/14/24 11:51 06/14/24 11:51 06/14/24 11:51 06/14/24 11:51
Last Documented Vital Signs
Temp Pulse Resp BP Pulse Ox
97.7 F 56 16 122/67 99
06/14/24 11:51 06/14/24 16:15 06/14/24 16:15 06/14/24 16:00 06/14/24 11:51
<Sabrina Mcmillan MD, Resident - Last Filed: 06/18/24 19:30>
MDM/Problems Addressed
Differential Diagnosis Includes:
symptomatic A-fib, myocardial infarction, medication side effect, electrolyte abnormality, vasovagal response, dehydration
MDM/Problems Addressed:
History supports vasovagal response and dehydration. CBC and chemistries are unremarkable and symptoms have improved with fluids. Blood pressure is also improved. However EKG shows A-fib with controlled heart rate and prolonged QTc 550 in patient
with presyncope. Patient feels 'thirsty' and generally tired but presyncope symptoms have resolved. Will repeat EKG, and add on serum magnesium, and reassess shortly after IV fluids.
<Sabrina Mcmillan MD, Resident - Last Filed: 06/18/24 19:30>
*Critical Care Note
Total Time (30-74mins, 75-104mins- exclusive of procedures): Not Applicable
ED Attending Note
<Sabrina Mcmillan MD, Resident - Last Filed: 06/18/24 19:30>
-
Portions of this chart may have been created with voice recognition software.� Occasional wrong word or��sound alike� substitutions may have occurred due to the inherent limitations of voice recognition software.
<Sanju Ham, - Last Filed: 06/20/24 06:59>
ED Attending Note
Patient seen and examined by attending physician: Yes
I performed the substantive portion of visit, reviewed & personally made and approve the management plan that is documented in note by myself or FLOR.: Yes
ED Attending Note:
I agree with Carmen's note
Patient presents to the emergency room after having an episode where he felt as if he might pass out while at physical therapy. Symptoms began while he was doing little exercise where he began to feel warm. Physical therapist noted that he looked
flushed and had him rest. While resting he decided he needed to go the bathroom. While going to the bathroom began to feel dizzy and generally weak. He required help to get up and 911 was called. Patient denies any chest pain, headache or
palpitations during the event. Currently he feels back to baseline and has no symptoms.
General: Awake, Alert, Oriented X3. No acute distress.
Vitals: unremarkable
Head: Atraumatic
Eyes: Pupils equal, EOMI
Throat: Airway intact, no exudates
Neck: Trachea midline
Lungs: Clear and equal b/l
Heart: Regular rate, no murmurs
Abd: Soft, Nontender, No pulsatile mass
Neuro: Nonfocal
Skin: Warm, dry, no rash
Extremities: pulses equal b/l, no edema
Pt appears stable at this time. Work appears reassuring. Overall context of his presentation is highly consistent with a vasovagal event. Patient feeling great now and ambulating without difficulty. Patient stable for discharge
Discharge Plan
Departure
Patient Disposition: Home (Routine Discharge)
Date of Disposition: 06/14/24
Time of Disposition: 15:54
Patient with high blood pressure during this ER visit?: No
Condition: Good
Discharge Problem:
Vasovagal near syncope
Instructions: Syncope (Fainting) (DC)
Prescriptions:
No Action
furosemide 40 MG tablet
40 mg PO DAILY
amlodipine 5 MG tablet
5 mg PO DAILY
atorvastatin 40 mg Tablet
40 mg PO DAILY
Arnuity Ellipta 200 mcg/actuation Blister With Device
1 inh INHALATION R DAILY
citalopram 30 mg Capsule
30 mg PO QPM
acetaminophen [Tylenol Extra Strength] 500 mg Tablet
1,000 mg PO Q6HPRN PRN (Reason: mild pain)
gabapentin 100 mg Capsule
100 mg PO QPM
lisinopril 40 mg Tablet
40 mg PO DAILY
docusate sodium [Stool Softener] 100 mg Tablet
100 mg PO QPM
levetiracetam 500 mg Tablet
1,000 mg PO HS Qty: 0 0RF
Eliquis 2.5 mg tablet
2.5 mg PO BID Qty: 60 0RF
Referrals:
Doug Maldonado MD [Family Provider] -
Activity Restrictions/Additional Instructions:
Your workup here is reassuring. Please follow up with your cream maker office.
Interventions
Interventions:
*Risk Screen - Suicide Last Done: 06/14/24 11:51
*General Assessment Last Done: 06/14/24 11:51
*Neglect/Abuse Screening Last Done: 06/14/24 12:54
*Nursing Disposition Last Done: 06/14/24 16:31
ED- Cardiac Assessment Last Done: 06/14/24 12:54
ED- Neurological Assessment Last Done: 06/14/24 12:54
Discharge Date and Time
Discharge Date/Time: 06/14/24 16:31
Print Language: LUXEMBOURGISH
[2024-06-14 14:24] LABS: Magnesium 1.8 mg/dl (1.6-2.3)
== END 2024-06-14 16:31 | disposition home or self-care (01) ==
LOC: EMR 11:48
PROVIDERS: Emergency Medicine; EMERGENCY PHYSICIAN Emergency Medicine; FAMILY PHYSICIAN Family Medicine
DX: R55 Syncope and collapse (principal); I10 Essential (primary) hypertension; E78.00 Pure hypercholesterolemia, unspecified; I48.21 Permanent atrial fibrillation; Z79.01 Long term (current) use of anticoagulants; Z87.820 Personal history of traumatic brain injury
CPT/HCPCS: 99284; 80053; 83735; 85025; 93005

== ENCOUNTER → 2024-07-26 09:42 | Outpatient (REF) | payer OTHER, SELFPAY | LOC: RAD 09:42 | PROVIDERS: ATTENDING PHYSICIAN Physician Assistant Medical; FAMILY PHYSICIAN Family Medicine; REFERRING PHYSICIAN Neurological Surgery | DX: S06.5XAA Traumatic subdural hemorrhage with loss of consciousness status unknown, initial encounter (principal) | CPT/HCPCS: 70450 ==

== ENCOUNTER → 2024-12-01 08:27 | Outpatient (REF) | payer OTHER, SELFPAY ==
--- NOTE | 2024-11-22 16:02 | WATCHMAN ---
Documented by User: SHADIA Stewart 11/22/24 16:07
Watchman
Wathcman Procedure
Referred by:: Marco Rose/ Office staff
Date of Referral:: 11/22/24
[id number] Score
Age in Years (65=0, 65-74=1, >/=75=2): > or = 75
Sex (Female=+1): Male
Congestive Heart Failure History (Yes=+1): Yes
Hypertension History (Yes=+1): Yes
Stroke/TIA/Thromboembolism History (Yes=+2): No
Vascular Disease History (Yes=+1): No
Diabetes Mellitus (Yes=+1): No
Score: 4
Anticoagulation Recommendations: Recommend anticoagulation (as validated in nonvalvular fib)
HASBLED Score
Hypertenstion (uncontrolled >160mmHG systolic): No
Renal disease (dialysis, transplant, Cr >2.26mg/dL or >200umol/L): No
Liver disease (cirrhosis or bilirubin >2x normal w/ AST/ALT/AP >3x normal: No
Stroke history: No
Prior major bleeding or predisposition to bleeding: Yes
Labile INR(unsable/high INRs,time in therapeutic range <60%): No
Age >65: Yes
Medication usage predisposing to bleeding(ASA, NSAIDS): No
Alcohol use (>/= 8 drinks/week): No
Score: 2
Risk: Anticoagulation can be considered, however patient does have moderate risk for major bleeding (2/100 patient-years)
Physician Visits
Internist Medical Doctor Md:: [place]
Date of Visit:: 10/14/24
Primary Community Health Educator:: Marco Rose
PCP:: Dexter Maldonado
Plan
Plan:: 11/22/2024: Consult sent from Blue Andersen in Dr. Rose's office. Spoke to and ordered BMP and scheduled CT Watchman for 12/01/2024. Allowed for and answered questions. Emailed instructions for CT scan and gave contact information.

Documented by User: SHADIA Vásquez 12/06/24 07:35
Watchman
[id number] Score
Score: 4
Anticoagulation Recommendations: Recommend anticoagulation (as validated in nonvalvular fib)
HASBLED Score
Score: 2
Risk: Anticoagulation can be considered, however patient does have moderate risk for major bleeding (2/100 patient-years)
Plan
Plan:: 11/22/2024: Consult sent from Blue Andersen in Dr. Rose's office. Spoke to and ordered BMP and scheduled CT Watchman for 12/01/2024. Allowed for and answered questions. Emailed instructions for CT scan and gave contact information.
12/06/2024 Reviewed patient with the heart team in the SDM meeting and discussed a 31/35mm device. Will confirm with intraop imaging.
== END ==
LOC: RAD 08:27
PROVIDERS: ATTENDING PHYSICIAN Internal Medicine Cardiovascular Disease; FAMILY PHYSICIAN Family Medicine
DX: I48.0 Paroxysmal atrial fibrillation (principal)
CPT/HCPCS: 75572; Q9967

== ENCOUNTER → 2025-01-19 11:22 | Outpatient (REF) | payer OTHER, SELFPAY | LOC: HWRCS 11:22 | PROVIDERS: ATTENDING PHYSICIAN Internal Medicine Cardiovascular Disease; FAMILY PHYSICIAN Family Medicine | DX: I50.32 Chronic diastolic (congestive) heart failure (principal); I10 Essential (primary) hypertension; J98.4 Other disorders of lung | CPT/HCPCS: 78452; 93017; A9500; J2785 ==

== ENCOUNTER 2025-02-07 07:43 | Inpatient (IN) | payer OTHER, SELFPAY ==
[2025-01-24 09:54] VITALS: BMI 31.2
[2025-01-24 10:23] LABS: % Basophils 0.4 % (0-2); % Eosinophils 2.2 % (0-6); % Immature Granulocytes 0.6 % (0-0.5); % Lymphocytes 22.2 % (20.5-51.1); % Monocytes 7.8 % (1.7-9.3); % Neutrophils 66.8 % (42.2-75.2); Absolute Eosinophils 0.2 10^3/uL (0-0.7); Absolute Lymphocytes 1.5 10^3/uL (1.2-3.4); Absolute Monocytes 0.5 10^3/uL (0.1-0.6); Absolute Neutrophils 4.5 10^3/uL (1.4-6.5); Hematocrit 41.8 % (39.0-52.0); Hemoglobin 14.4 g/dL (13.0-18.0); Mean Corp Hgb Conc. 34.4 g/dL (33.0-37.0); Mean Corpuscular Hgb 29.9 pg (27.0-31.0); Mean Corpuscular Volume 86.7 fL (80.0-94.0); Mean Platelet Volume 9.2 fL (7.4-10.4); Nucleated Red Blood Cells % 0 % (-); Platelet Count 318 10^3/uL (130-400); Red Blood Cell Count 4.82 10^6/uL (4.70-6.10); Red Cell Dist. Width 12.9 % (11.5-14.5); White Blood Cell Count 6.8 10^3/uL (4.8-10.8)
[2025-01-24 10:39] LABS: INR 1.09; PT 14.4 Sec (11.4-14.6)
[2025-01-24 10:57] LABS: ALT (SGPT) 18 U/L (0-50); AST (SGOT) 15 U/L (17-59); Alkaline Phosphatase 121 U/L (38-126); Blood Urea Nitrogen 21 mg/dl (9-20); Calcium 9.9 mg/dl (8.4-10.2); Carbon Dioxide 31 mmol/L (22-30); Chloride 99 mmol/L (98-107); Estimated Creatinine Clearance 75 ml/min; Glucose 155 mg/dl (70-99); Potassium 5.2 mmol/L (3.5-5.1); Sodium 137 mmol/L (135-145); Total Bilirubin 0.9 mg/dl (0.2-1.3); Total Protein 7.1 g/dl (6.3-8.2); eGFR > 60.00
[2025-02-07] VITALS (13 sets, daily range): BP systolic 128–146; BP diastolic 48–122
[2025-02-07 11:16] LABS: ACT-LR - POC 274 Seconds (116-155)
--- NOTE | 2025-02-07 11:27 | ITS.CL.PN ---
Patent Law Specialist - Procedure Note
Procedure
Procedure Note:
Watchman implantation report
Date: February 07, 2025
History: Recent subdural hematoma after fall and permanent atrial fibrillation. Prior history of left atrial appendage thrombus which was cleared with CT scan and preoperative transesophageal echo
Referring: Dr. Marco Rose
Procedure report:
Watchman implant: Rose
Transseptal small lot operator groin access: Rose
After informed consent and patient safety timeout the patient was sedated by the anesthesiology service under general anesthesia. Transesophageal echocardiogram by Dr. Schumacher was performed clearing the left atrial appendage without thrombus and
severe left and right atrial dilation without pericardial effusion pre and post procedure. We then performed groin access once the appendage was cleared with an 8 Greenlandic right femoral vein under ultrasound guidance and over a pigtail RF wire the 8
Greenlandic sheath was exchanged for the 16 Greenlandic watchman sheath with dilator and RF wire apparatus. Transseptal puncture was performed with EZEQUIEL guidance. The right atrium was severely dilated making transseptal puncture somewhat difficult. We were
able to achieve a mid fossa access point and relatively low and crossed with the RF wire into the left atrium under EZEQUIEL guidance. The sheath was brought into the left atrium and the pigtail wire was exchanged for a pigtail catheter which engaged
left atrial appendage. Dye injection demonstrated a 21 mm ostium in a windsock morphology with 2 distal pedestal's forming the distal left atrial appendage into 3-minute lobes. Engaging the most posterior lobe allowed proper delivery of the device.
Once the left atrial appendage was imaged a 27 mm device was brought to the field and was delivered as distally as possible with a good ostial position, passing multiple tug tests, dye injection demonstrating an ostial seat without leak and no leak
at transesophageal echo. Compression was between 12 and 18% in 0, 45 degree, 90 degree and 135 degree imaging. We did discuss alternative 31 mm device although there was concern over more mitral and posterior shoulder without increased compression
given the distal pedestal/lobes in the distal appendage. As the 27 mm device met Pass criteria the device was delivered without sequelae. Sheaths and catheters were withdrawn to the right atrium. Heparin was given for the duration of the
procedure for an ACT greater than 300 seconds and protamine was given at 30 mg post procedure with withdrawal of the sheath into the right atrium. She has removed from the right femoral vein and a [id number] stitch was delivered.
Impression:
27 mm device delivery
3 months of apixaban 2.5 mg p.o. twice daily with a 3-month EZEQUIEL
--- NOTE | 2025-02-07 16:51 | W.DS.TRANS ---
DC Summary - Glove Cutter
-
Discharge Instructions:
Discharge Diagnosis/Procedures Atrial fibrillation post Watchman device implant
Diet Low Cholesterol
Driving Restrictions No driving for 24 hours
Others Tests Follow up EZEQUIEL is scheduled at [facility] on 05/18/2025. Preadmission testing
appointment is 05/08/2025 at 10am in [facility]. You
will receive instructions in the mail.
Instructions:
Stand-Alone Forms: DC Instructions- Cath/EP Lab
Changes to Home Medications: No
Discharge Medications:
DC Medications w/original date entered in [employer]
furosemide 40 mg tablet 40 mg PO DAILY Fluid Retention/Swelling 10/06/13
atorvastatin 40 mg tablet 40 mg PO DAILY High Cholesterol 04/10/24
fluticasone furoate 200 mcg/actuation blister powder for inhalation (Arnuity Ellipta) 1 inh inhalation R DAILY Lung/Breathing Issues 04/10/24
acetaminophen 500 mg tablet (Tylenol Extra Strength) 1,000 mg PO Q6HPRN PRN mild pain 04/19/24
docusate sodium 100 mg tablet (Stool Softener) 100 mg PO QPM Constipation 04/19/24
gabapentin 100 mg capsule 100 mg PO QPM Neurological Condition 04/19/24
apixaban 2.5 mg tablet (Eliquis) 2.5 mg PO BID #60 tabs 04/21/24
elpwppudd-YGW-vlocpdeujvugg tablet 1 - 2 tab PO TIDPRN PRN cough 01/24/25
fluticasone propionate 50 mcg/actuation nasal spray,suspension 1 spray intranasal DAILY PRN allergies/congestion 02/07/25
lisinopril 20 mg tablet 20 mg PO DAILY 02/07/25
Home Medication Changes
Pending Results: No
== END 2025-02-07 16:30 | disposition home or self-care (01) | DRG 274 ==
LOC: CATH-IN 07:43
PROVIDERS: ADMITTING PHYSICIAN Internal Medicine Cardiovascular Disease; FAMILY PHYSICIAN Family Medicine
PROC: B24BZZ4 Ultrasonography of Heart with Aorta, Transesophageal (ICD-10-PCS; 2025-02-07)
PROC: 02L73DK Occlusion of Left Atrial Appendage with Intraluminal Device, Percutaneous Approach (ICD-10-PCS; 2025-02-07)
DX: I48.21 Permanent atrial fibrillation (principal); Z00.6 Encounter for examination for normal comparison and control in clinical research program; I50.32 Chronic diastolic (congestive) heart failure; E78.5 Hyperlipidemia, unspecified; I11.0 Hypertensive heart disease with heart failure; I25.10 Atherosclerotic heart disease of native coronary artery without angina pectoris; J45.909 Unspecified asthma, uncomplicated; J98.4 Other disorders of lung; R73.03 Prediabetes; Z86.0100 Personal history of colon polyps, unspecified; Z68.31 Body mass index [BMI] 31.0-31.9, adult; E66.9 Obesity, unspecified; Z87.891 Personal history of nicotine dependence; Z77.090 Contact with and (suspected) exposure to asbestos; M54.30 Sciatica, unspecified side; Z91.81 History of falling; K59.09 Other constipation; Z79.01 Long term (current) use of anticoagulants
CPT/HCPCS: 33340; 36415; 80053; 85025; 85347; 85610; 86850; 86900; 86901; 87070; 93005; 93355; C1894; Q9967

== ENCOUNTER 2025-05-18 06:34 | Day surgery (SDC) | payer OTHER, SELFPAY ==
[2025-05-08 10:17] VITALS: BMI 31.0
--- NOTE | 2025-05-08 10:31 | HPS.HSE ---
Family Physician
-
Family Physician: Doug Maldonado
Chief Complaint
-
Permanent atrial fibrillation.
History of Present Illness
The patient is an 84 year old male presenting today for permanent atrial fibrillation. The patient reports a history of palpitations, lightheadedness, and fatigue all likely secondary to this diagnosis. He previously underwent three failed
cardioversions for his arrhythmia. He is rate controlled without the use of pharmacological therapy. He is on Eliquis for oral anticoagulation due to a [id number] of 4. He does have known balance difficulties at baseline. He also experienced a
subdural hematoma after hitting his head during a fall in March 2024. This occurred in [place] while vacationing. Eventually, he would undergo a craniotomy on April 27, 2024 due to a serial head CT scans revealing an enlargement of his
hematoma. Overall, his HAS-BLED score is 2. Given his increased risk for thromboembolic as well as bleeding events while remaining on Eliquis, it was recommended he proceed with a Watchman implant. He would undergo this procedure on February 07, 2025
with no reported complications. He is now 3 months post-Watchman and he will proceed with a transesophageal echocardiogram to assess the stability of his device. He denies any current complaints today such as chest pain, shortness of breath, nausea,
vomiting, diarrhea, dizziness, cough, sore throat, or fever.
Medical History
Past Medical History
Past Medical History: Reports Other
Additional Past Medical History:
1. Permanent atrial fibrillation, status post Watchman implant 01/2025; oral anticoagulation with Eliquis.
2. Hypertension.
3. Hyperlipidemia.
4. Coronary artery disease, stress test 01/19/2025 stable.
5. Chronic diastolic heart failure, preserved ejection fraction.
6. Right bundle branch block.
7. Mild mitral regurgitation.
8. Mild pulmonic regurgitation.
9. Prior left atrial appendage thrombus, diagnosed 2011.
10. Venous varicosities.
11. Near-syncope, likely vasovagal, 05/2024.
12. Asthma.
13. Restrictive lung disease.
14. Chronic dyspnea on exertion.
15. Borderline diabetes.
16. Colon polyps with history of post-polypectomy bleed.
17. Chronic constipation.
18. Ambulatory dysfunction and balance difficulties.
19. Subdural hematoma after fall, status post craniotomy 04/27/2024.
20. Multilevel degenerative disc disease.
21. Sciatica.
22. Squamous cell carcinoma, status post excision.
23. Anxiety/depression.
24. Asbestos exposure.
25. Obesity, BMI 31.0.
26. Remote history of tobacco abuse.
Past Surgical History: Reports Other
Additional Past Surgical History:
1. Watchman implant.
2. Cardioversion x3.
3. Bilateral greater saphenous vein ablation.
4. Varicose vein stripping.
5. Bilateral carpal tunnel release.
6. Craniotomy.
7. Squamous cell carcinoma excision.
8. Bilateral cataract extraction.
9. Colonoscopy with polypectomy.
Social History
Tobacco: Former Smoker (He is a former pipe smoker who quit tobacco products altogether in his 30s. )
Alcohol: None (in the last three years. )
Personal:
Living: Other (The patient lives in a ranch style home with his spouse.)
Family History
Family History: Not pertinent
Allergies / Home Medications
Allergy/Medication List:
MEDICATIONS:
1. Acetaminophen 1000 mg p.o. every six hours as needed.
2. Apixaban 2.5 mg p.o. twice a day.
3. Arnuity Ellipta one inhalation daily.
4. Atorvastatin 40 mg p.o. daily.
5. Colace 100 mg p.o. every evening.
6. Furosemide 40 mg p.o. daily.
7. Gabapentin 100 mg p.o. every evening.
8. Lisinopril 20 mg p.o. daily.
9. Citalopram 30 mg p.o. at bedtime.
10. Fluticasone propionate 1 spray intranasal daily as needed.
ALLERGIES: No known allergies.
Review of Systems
-
A 12 point ROS was completed and negative except as noted: Yes
Physical Exam
Vital Signs
Blood pressure 128/77. Heart rate 65. Respirations 18. Pulse ox 96% on room air.
Height 5 feet, 6.5 inches. Weight 88.5 kg. BMI 31.0.
Physical Exam
General: Well Developed, Well Nourished and No Apparent Distress
HEENT: NormoCephalic, Moist mucous membranes, Atraumatic and PERRLA
Respiratory: Clear
Cardiac: Irregular Rhythm
GI: Soft, Non Tender, Non Distended and Other (Obese. )
Musculoskeletal: Other (+1 nonpitting edema of bilateral lower extremities. No calf tenderness. The patient ambulates with a single point cane. )
Skin: Warm and Dry
Neuro: AO x 3 (but forgetful at times. ) and Nonfocal/grossly intact
Laboratory Results
-
EKG 05/08/2025: Atrial fibrillation with slow ventricular response. Incomplete right bundle branch block. Septal infarct, cited on or before February 07, 2025. ST and T wave abnormality, consider lateral ischemia.
Transesophageal echocardiogram 02/07/2025: EZEQUIEL imaging performed as part of Watchman procedure. Pre-procedure: normal left ventricular function. No thrombus in the left atrial appendage and no pericardial effusion. Post-procedure: Watchman device
appears well-seated with no leaking around device by color-flow Doppler. No pericardial effusion post-procedure.
Impression/Plan
-
IMPRESSION/PLAN:
1. Permanent atrial fibrillation: The patient is 3 months post-Watchman and will need to undergo a post-procedural transesophageal echocardiogram with Dr. Malcolm Abraham on 05/18/2025. The benefits and risks have been explained to the patient.
The patient understands these risks and wishes to proceed. He is aware to hold his Furosemide the morning of his procedure. Should his Watchman device be well seated and without significant leaks, he will likely transition off Eliquis and onto a
daily baby Aspirin indefinitely.
== END 2025-05-18 09:30 | disposition home or self-care (01) ==
LOC: CATH 06:34
PROVIDERS: ATTENDING PHYSICIAN Internal Medicine Cardiovascular Disease; FAMILY PHYSICIAN Family Medicine; OTHER PHYSICIAN Internal Medicine Cardiovascular Disease
DX: I48.21 Permanent atrial fibrillation (principal); I08.3 Combined rheumatic disorders of mitral, aortic and tricuspid valves; E66.9 Obesity, unspecified; E78.5 Hyperlipidemia, unspecified; F32.A Depression, unspecified; I11.0 Hypertensive heart disease with heart failure; I25.10 Atherosclerotic heart disease of native coronary artery without angina pectoris; I45.10 Unspecified right bundle-branch block; I50.32 Chronic diastolic (congestive) heart failure; I70.0 Atherosclerosis of aorta; J45.909 Unspecified asthma, uncomplicated; Z68.31 Body mass index [BMI] 31.0-31.9, adult; Z79.01 Long term (current) use of anticoagulants; Z79.899 Other long term (current) drug therapy; Z86.0100 Personal history of colon polyps, unspecified; Z87.891 Personal history of nicotine dependence; Z98.890 Other specified postprocedural states
CPT/HCPCS: 93312; 93320; 93325; 93005

== ENCOUNTER 2025-09-08 21:55 | Inpatient (IN) | payer OTHER, SELFPAY ==
[2025-09-08 18:35] VITALS: BP 124/55
[2025-09-08 19:10] VITALS: BP 121/61
--- NOTE | 2025-09-08 19:13 | ED.GENMED ---
History of Present Illness
General
Chief Complaint: Abdominal Symptoms
Source: patient
Exam Limitations: none
Time Seen by Provider: 09/08/25 18:34
Nursing documentation reviewed up to this point in time: agreed with
History of Present Illness
History of Present Illness:
Patient presents to ED secondary to sudden onset of abdominal discomfort, which caused patient to go to the bathroom. When he sat down on the toilet, he experienced large amount of nonbloody loose bowel movement. Shortly afterwards patient
reported significant generalized weakness with near syncopal symptoms. 911 was called at that time. Upon arrival to ED, patient found to be mildly hypotensive and ill-appearing, with lower half of body covered in nonbloody stool. Patient reports
feeling weak and tired. Denies recent illness. Denies sick contact. Denies recent change in medications or diet. Denies previous history of similar symptoms.
Past History
Past History
ED Past Medical History: Arrthythmia (Atrial fibrillation), HTN, Hypercholesterolemia and Other (: Polyps)
ED Past Surgical History: Other (History of colon polyps and removal of 12/04/2011, and carpal tunnel surgery)
Social History
Tobacco: Non-smoker
Alcohol: None
Personal:
Living: with family
Employment: Retired
Review of Systems
Review of Systems
Allergies reviewed?: Yes
All Other Systems: ROS reviewed and negative except as documented in HPI and ROS
Constitutional: Reports no symptoms; Denies fever
Respiratory: Reports no symptoms
Cardiac: Reports no symptoms
ABD/GI: Reports abdominal pain and diarrhea; Denies nausea or vomiting
: Reports no symptoms
Musculoskeletal: Reports no symptoms
Skin: Reports no symptoms
Neurological: Reports no symptoms
Phy Exam
Physical Exam
Physical Exam:
Physical Exam
General: mild distress, not acutely ill. afebrile
Head: nc/at. eomi
Neck: supple. no meningeal signs.
Heart: irregularly irregular
Lungs: no acute respiratory distress. clear bilaterally
Abdomen: normal bowel sounds. no distention. mild lower abdominal tenderness to palpation, L>R
Neuro: alert and oriented. no focal neurological deficits
Skin: no rash
Psychiatric: well kept. interactive and cooperative
Extremities: no edema. no calf tenderness.
Course
Orders/Labs/Results
Orders:
Orders
09/08/25 Dinner
NPO
Allow oral meds: Yes
Allow clear liquids: Sips of Clears
09/08/25 18:39
CT Abd/pelvis W Iv Cont Urgent
Comment:
Reason For Exam: lower abd pain w diarrhea
0.9% Sodium Chloride 500 ml [Nss] 500 ml IV BOLUS
Pantoprazole [Protonix IV] 40 mg IV NOW STA
09/08/25 19:31
Comprehensive Metabolic Panel Urgent
Magnesium Urgent
09/08/25 19:32
Complete Blood Count/With Diff Urgent
Lactate Level [Lactic Acid] Urgent
09/08/25 19:36
Sterile Water [Sterile Water For Injection] 10 ml .ROUTE .STK-MED ONE
09/08/25 20:05
C DIFF [C difficile Antigen & Toxins] Urgent
SHAN Source: Feces/Stool
Specimen Description:
Date Specimen was Collected: 09/08/25
Time Specimen was Collected: 20:03
Stool Culture Urgent
SHAN Source: Feces/Stool
Specimen Description:
Date Specimen was Collected: 09/08/25
Time Specimen was Collected: 20:03
09/08/25 20:09
0.9% Sodium Chloride 500 ml [Nss] 500 ml IV BOLUS
09/08/25 21:15
Piperacillin/Tazo 3.375 Gram [Zosyn] 3.375 gram in 50 ml IV ONCE
09/08/25 21:36
Admit/Transfer Patient As Directed
Co-Sign Provider:
Level of Care: Inpatient admission
Assign to:: Telemetry
Physician / Group: ethan
Diagnosis: colitis
Reason for Telemetry: Arrhythmia
Date to Stop Telemetry: 09/11/25
Time to Stop Telemetry: 11:00
Reason for Hospitalization: colitis
Expected length of stay greater than two midnights?: Yes
ELOS- Estimated Length of Stay in days: 2
I certify the patient meets the requirements for IP care: Yes
PRN Pain Medication Management As Directed
May give lesser potent ordered pain med per pt: Yes
preference::
Protocol:: Medication orders for pain may be administered in a
manner that supports deferring to patient preference
when the pt is:
- Requesting an ordered lesser potent pain medication.
Least to most potent pain medications are defined
as: acetaminophen < NSAID < tramadol < opioids
(morphine, oxycodone, hydromorphone).
- Requesting a lesser dose of the same medication IF
ORDERED.
- Requesting a less intrusive route of administration
if both routes are prescribed by the provider (PO <
IV).
09/08/25 21:37
Code Status As Directed
Resuscitation Status: Full Code
09/08/25 22:46
Lactate Level [Lactic Acid] Q6H
0.9% Sodium Chloride 1000 ml [Nss] 1,000 ml IV 100 mls/hr
Acetaminophen [Tylenol] 650 mg PO Q4HPRN PRN
HYDROmorphone [Dilaudid] 0.5 mg IV Q4HPRN PRN
Ondansetron Injectable [Zofran] 4 mg IV Q6HPRN PRN
09/08/25 22:46
Activity As Directed
Activity Level: As Tolerated
Pneumatic Compression Sleeves As Directed
Type: Knee high
Vital Signs As Directed
Frequency: Per unit guidelines
DX Deep Vein Thrombosis Video Routine
09/08/25 23:00
Citalopram [Celexa] 30 mg PO HS
09/09/25 04:00
Piperacillin/Tazo 3.375 Gram [Zosyn] 3.375 gram in 50 ml IV Q6H
09/09/25 04:46
Lactate Level [Lactic Acid] Q6H
09/09/25 06:00
Complete Blood Count/With Diff IN AM
Comprehensive Metabolic Panel IN AM
09/09/25 08:00
Atorvastatin [Lipitor] 40 mg PO DAILY
FLUTICASONE PROPIONATE 110 mcg [Flovent 110 Mcg Inhaler] 2 puff INH R BID
09/09/25 18:00
Gabapentin [Neurontin] 100 mg PO QPM
09/11/25 11:00
DC Protocol for Telemetry ONCE
Abnormal Lab Results
09/08/25 09/08/25
19:31 19:32
WBC 15.9 H 10^3/uL
(4.8-10.8)
Abs Immat Gran (auto) 0.1 H 10^3/uL
(0-0.05)
Absolute Neuts (auto) 13.2 H 10^3/uL
(1.4-6.5)
Absolute Monos (auto) 1.0 H 10^3/uL
(0.1-0.6)
Neutrophils % 83.0 H %
(42.2-75.2)
Lymphocytes % 9.4 L %
(20.5-51.1)
BUN 30 H mg/dl
(9-20)
Glucose 175 H mg/dl
(70-99)
Lactic Acid 4.4 H* mmol/L
(0.7-2.0)
Alkaline Phosphatase 215 H U/L
(38-126)
09/08/25 19:32
09/08/25 19:31
Vital Signs
Initial and Last Documented VS:
Initial Vital Signs
Temp Pulse Resp BP Pulse Ox
98.2 F 64 16 124/55 97
09/08/25 18:35 09/08/25 18:35 09/08/25 18:35 09/08/25 18:35 09/08/25 18:35
Last Documented Vital Signs
Temp Pulse Resp BP Pulse Ox
98.1 F 74 18 163/78 97
09/08/25 23:11 09/08/25 23:11 09/08/25 23:11 09/08/25 23:11 09/08/25 23:11
MDM/Problems Addressed
MDM/Problems Addressed:
CT report reviewed and discussed with patient. Patient will be admitted for IV antibiotics.
*Pulse Oximetry
SaO2: 97
Oxygen Mode of Delivery: Room air
Patient hypoxic: no
*Critical Care Note
Total Time (30-74mins, 75-104mins- exclusive of procedures): Not Applicable
ED Attending Note
-
Portions of this chart may have been created with voice recognition software.� Occasional wrong word or��sound alike� substitutions may have occurred due to the inherent limitations of voice recognition software.
Discharge Plan
Departure
Patient Disposition: Admit
Date of Disposition: 09/08/25
Time of Disposition: 21:18
Admit to: Telemetry
Presentation/result/management discussed w/ accepting MD/DO: Hospitalist
Discharge Problem:
Diverticulitis, Bloody diarrhea
Interventions
Interventions:
*Risk Screen - Suicide Last Done: 09/08/25 21:38
*General Assessment Last Done: 09/08/25 21:38
*Neglect/Abuse Screening Last Done: 09/08/25 21:38
*ED COVID-19 Vaccine History Last Done: 09/08/25 21:38
*ED Influenza Vaccine History Last Done: 09/08/25 21:38
[facility] Fall Risk Assessment Tool Last Done: 09/08/25 21:41
*Nursing Disposition Last Done: 09/08/25 23:00
[facility] Assessment Last Done: 09/08/25 19:44
Discharge Date and Time
Discharge Date/Time: 09/08/25 23:00
[2025-09-08] MEDS: PROTONIX IV 40 MG IV (19:37)
[2025-09-08] MEDS: NSS 500 IV ×2 (19:38→21:32)
[2025-09-08 19:41] LABS: Hematocrit 47.4 % (39.0-52.0); Hemoglobin 15.8 g/dL (13.0-18.0); Mean Corp Hgb Conc. 33.3 g/dL (33.0-37.0); Mean Corpuscular Volume 88.1 fL (80.0-94.0); Nucleated Red Blood Cells % 0 % (-); Platelet Count 266 10^3/uL (130-400); Red Cell Dist. Width 13.2 % (11.5-14.5)
[2025-09-08 19:59] LABS: ALT (SGPT) 25 U/L (0-50); AST (SGOT) 26 U/L (17-59); Albumin 4.5 g/dl (3.5-5.0); Alkaline Phosphatase 215 U/L (38-126); Blood Urea Nitrogen 30 mg/dl (9-20); Calcium 9.3 mg/dl (8.4-10.2); Carbon Dioxide 26 mmol/L (22-30); Chloride 98 mmol/L (98-107); Estimated Creatinine Clearance 60 ml/min; Glucose 175 mg/dl (70-99); Magnesium 2.2 mg/dl (1.6-2.3); Potassium 4.0 mmol/L (3.5-5.1); Sodium 135 mmol/L (135-145); Total Protein 8.1 g/dl (6.3-8.2); eGFR > 60.00
[2025-09-08 20:06] VITALS: BP 129/63
[2025-09-08 21:12] VITALS: BP 119/87
[2025-09-08] MEDS: ZOSYN 50 IV (21:22)
--- NOTE | 2025-09-08 21:42 | HPS.HSE ---
Family Physician
-
Family Physician: Doug Maldonado
Chief Complaint
-
diarrhea
History of Present Illness
84-year-old male with past medical history of permanent atrial fibrillation, hypertension, hyperlipidemia, CAD, chronic diastolic heart failure, right bundle branch block,, prior left atrial appendage thrombus, asthma, restrictive lung disease,
borderline diabetes, colon polyps, post polypectomy bleeding, chronic constipation, subdural hematoma after fall status post craniotomy 2023, multilevel degenerative disc disease, sciatica, squamous cell carcinoma, anxiety/depression, obesity, prior
smoker, presenting with sudden onset of abdominal discomfort today with large amount of nonbloody loose bowel movements. Shortly after he had generalized weakness with near syncopal symptoms. 9 1 was called. He was hypotensive here. No fever.
He did have some hamburgers from outside today. No other sick contacts who ate that food. No recent antibiotic use.
After coming to the emergency room he had bloody stools.
He denies smoking or alcohol use.
Medical History
Past Medical History
Past Medical History: Reports Other (permanent atrial fibrillation, hypertension, hyperlipidemia, CAD, chronic diastolic heart failure, right bundle branch block,, prior left atrial appendage thrombus, asthma, restrictive lung disease, borderline
diabetes, colon polyps, post polypectomy bleeding, chronic constipation, subdural hematoma)
Past Surgical History: Reports Other (1. Watchman implant. 2. Cardioversion x3. 3. Bilateral greater saphenous vein ablation. 4. Varicose vein stripping. 5. Bilateral carpal tunnel release. 6. Craniotomy. 7. Squamous cell carcinoma excision. 8.
Bilateral cataract extraction. 9. Colonoscopy with polypectomy.)
Social History
Tobacco: Non-smoker
Alcohol: None
Drug: None
Family History
Family History: Not pertinent
Allergies / Home Medications
Allergies reflects when Allergies were last updated in [facility].
Home Medications with original date entered in [facility]
Allergy/Medication List:
Allergies
Allergy/AdvReac Type Severity Reaction Status Date / Time
No Known Drug Allergies Allergy Unknown Unknown Verified 09/08/25 18:43
Home Medications
furosemide 40 mg tablet 40 mg PO DAILY Fluid Retention/Swelling 10/06/13
atorvastatin 40 mg tablet 40 mg PO DAILY High Cholesterol 04/10/24
fluticasone furoate 200 mcg/actuation blister powder for inhalation (Arnuity Ellipta) 1 inh inhalation R DAILY Lung/Breathing Issues 04/10/24
docusate sodium 100 mg tablet (Stool Softener) 100 mg PO DAILY Constipation 04/19/24
gabapentin 100 mg capsule 100 mg PO QPM Neurological Condition 04/19/24
lisinopril 20 mg tablet 20 mg PO DAILY Blood Pressure 02/07/25
citalopram 30 mg capsule 30 mg PO HS Mental Health/Anxiety 05/04/25
aspirin 81 mg tablet,delayed release 81 mg PO DAILY 09/08/25
Review of Systems
-
History Source: Patient
A 12 point ROS was completed and negative except as noted: Yes
Constitutional: Reports No Symptoms
EENT: Reports No Symptoms
Respiratory: Reports No Symptoms
Cardiac: Reports No Symptoms
Abdomen/GI: Reports No Symptoms
: Reports No Symptoms
Musculoskeletal: Reports No Symptoms
Skin: Reports No Symptoms
Neurological: Reports No Symptoms
Endocrine: Reports No Symptoms
Hematologic/Lymphatic: Reports No Symptoms
Psych: Reports No Symptoms
Physical Exam
Vital Signs
Vital Signs
Temp Pulse Resp BP Pulse Ox
98.2 F 67 14 129/63 96
09/08/25 18:35 09/08/25 20:06 09/08/25 20:06 09/08/25 20:06 09/08/25 20:06
Physical Exam
General: Well Developed, Well Nourished and No Apparent Distress
HEENT: NormoCephalic, Moist mucous membranes and Atraumatic
Respiratory: Clear
Cardiac: S1/S2 and Regular Rhythm; No Murmur or Rub
GI: Soft, Non Tender, Non Distended and Normal Bowel Sounds; No Organomegaly
Rectal: Deferred by Provider
Musculoskeletal: No Clubbing, No Cyanosis and No Edema
Skin: No Rash
Neuro: Nonfocal/grossly intact
Laboratory Results
-
09/08/25 19:32
09/08/25 19:31
Laboratory Results
Lactic Acid 4.4 mmol/L (0.7-2.0) H* 09/08/25 19:32
Total Bilirubin 0.9 mg/dl (0.2-1.3) 09/08/25 19:31
AST 26 U/L (17-59) 09/08/25 19:31
ALT 25 U/L (0-50) 09/08/25 19:31
Alkaline Phosphatase 215 U/L (38-126) H 09/08/25 19:31
Data Reviewed
-
Lab Data: Labs Reviewed by me
Old Records: Reviewed
Impression/Plan
-
IMPRESSION:
PLAN:
# Sepsis (lactic acidosis and hypotension ) secondary to acute colitis likely infectious/diverticulitis with hematochezia
-Hemoglobin 15
-Lactate 4.4, leukocytosis 16
- CT abdomen pelvis shows mild sigmoid diverticulitis, 5 cm segment of mid sigmoid colon which demonstrate circumferential wall thickening with underdistention and subtle soft tissue stranding of the peripheral margin, segment of the sigmoid colon
relatively devoid of diverticular formation,
- N.p.o.
- Check norovirus, stool culture, C. difficile,
- IV fluids
-Hold Lasix, lisinopril
- Zosyn
- Zofran, Dilaudid as needed
Permanent atrial fibrillation status post Watchman
- Hold aspirin for now
Essential hypertension
- Hold lisinopril
Hyperlipidemia
CAD
- Hold aspirin
- Continue statin
Chronic diastolic heart failure
- Hold Lasix
Right bundle branch block
Prior left atrial appendage thrombus
Asthma
Restrictive lung disease
Borderline diabetes
History of colon polyps,
History of postpolypectomy bleeding
Chronic constipation
History of subdural hematoma status postcraniotomy in 2023
Multilevel degenerative disease
- Continue gabapentin
Sciatica
Squamous cell carcinoma
Anxiety/depression
- Continue citalopram
Obesity
Prior smoker
Full code
DVT prophylaxis�heparin
N.p.o.
[2025-09-08 22:00] VITALS: BP 144/69
[2025-09-08 23:11] VITALS: BP 163/78
[2025-09-08 23:12] VITALS: BMI 30.9
[2025-09-08] MEDS: NSS 1000 IV (23:27)
[2025-09-08] MEDS: CELEXA 30 MG PO (23:29)
[2025-09-09 01:00] VITALS: BMI 30.9
[2025-09-09 03:00] VITALS: BP 161/80
[2025-09-09] MEDS: ZOSYN 50 IV ×4 (04:18→21:43)
[2025-09-09 05:37] VITALS: BMI 30.9
--- NOTE | 2025-09-09 06:01 | W.PN.UPDATE ---
Update Note
Progress Note Update
On bedpan this morning RN reports pt passed mod amt of bright red blood and maroon blood mix.
CT last night with Mild sigmoid diverticulitis. 5 cm segment of the mid sigmoid colon which demonstrates circumferential wall thickening with underdistention and subtle soft tissue stranding of the peripheral margin. This segment of the sigmoid
colon is relatively devoid of diverticula formation. No focal mass or overhanging edges are noted to suggest neoplastic process. This could represent extension of inflammatory changes or nonspecific colitis.
Blood could be diverticular vs from colitis.
Consult GI
Last HH 15.8
[2025-09-09 06:15] LABS: Hematocrit 42.7 % (39.0-52.0); Hemoglobin 14.5 g/dL (13.0-18.0); Mean Corp Hgb Conc. 34.0 g/dL (33.0-37.0); Mean Corpuscular Volume 87.3 fL (80.0-94.0); Nucleated Red Blood Cells % 0 % (-); Platelet Count 230 10^3/uL (130-400); Red Cell Dist. Width 13.0 % (11.5-14.5)
[2025-09-09 06:32] LABS: ALT (SGPT) 22 U/L (0-50); AST (SGOT) 20 U/L (17-59); Albumin 4.1 g/dl (3.5-5.0); Alkaline Phosphatase 165 U/L (38-126); Blood Urea Nitrogen 28 mg/dl (9-20); Calcium 8.7 mg/dl (8.4-10.2); Carbon Dioxide 22 mmol/L (22-30); Chloride 104 mmol/L (98-107); Estimated Creatinine Clearance 60 ml/min; Glucose 156 mg/dl (70-99); Potassium 4.7 mmol/L (3.5-5.1); Sodium 135 mmol/L (135-145); Total Protein 7.2 g/dl (6.3-8.2); eGFR > 60.00
[2025-09-09] MEDS: TYLENOL 650 MG PO (06:41)
--- NOTE | 2025-09-09 06:45 | PTCARENOTE ---
Patient on bedpan having BM, when bedpan removed, patient noted to have had a moderate amount of bright red blood and slight maroon blood mixed. RECEIVING SPECIALIST Emily Millan notified. Morning labs drawn. Hgb 14.5. GI cons placed. Plan of care ongoing
--- NOTE | 2025-09-09 07:42 | W.PN.HOSP.TC ---
Today's Communication/Plan
-
see bold
Assessment / Plan
Assessment / Plan
HPI: 84-year-old male with past medical history of permanent atrial fibrillation, hypertension, hyperlipidemia, CAD, chronic diastolic heart failure, right bundle branch block,, prior left atrial appendage thrombus, asthma, restrictive lung disease,
borderline diabetes, colon polyps, post polypectomy bleeding, chronic constipation, subdural hematoma after fall status post craniotomy 2023, multilevel degenerative disc disease, sciatica, squamous cell carcinoma, anxiety/depression, obesity, prior
smoker, presenting with sudden onset of abdominal discomfort today with large amount of nonbloody loose bowel movements. Shortly after he had generalized weakness with near syncopal symptoms. 9 1 was called. He was hypotensive here. No fever. He
did have some hamburgers from outside today. No other sick contacts who ate that food. No recent antibiotic use.
#Acute mild sigmoid diverticulitis
#Sepsis due to diverticulitis with lactic acidosis
C. diff neg
Seen by GI, continue IV Zosyn, IVFs, follow-up on stool cultures
Trial clear liquid diet, GI recommends outpatient follow-up for colonoscopy
#Hematochezia
From diverticulitis
Hold aspirin, trend hemoglobin
Permanent atrial fibrillation status post Watchman
Prior left atrial appendage thrombus
- Patient not on any rate controlling agents
- Hold aspirin for now
Essential hypertension
- Resume lisinopril at decreased dose of 10 mg daily
Hyperlipidemia
CAD
- Hold aspirin
- Continue statin
Chronic diastolic heart failure
- Hold Lasix, decrease IV fluid rate
Right bundle branch block
Asthma
Restrictive lung disease
Borderline diabetes
History of colon polyps,
History of postpolypectomy bleeding
Chronic constipation
History of subdural hematoma status postcraniotomy in 2023
Multilevel degenerative disease
- Continue gabapentin
Sciatica
Squamous cell carcinoma
Anxiety/depression
- Continue citalopram
Obesity
Prior smoker
DVT prophylaxis�SCD secondary to bloody stools
Full code
Total time spent to see the patient on the floor, examine the patient, review data and lab results, discuss treatment plan with patient, nursing staff around 41 minutes.
Physical Exam
General: No acute distress
HEENT: Normocephalic, Atraumatic, EOMI, MMM
Respiratory: Clear to Auscultation bilaterally
Cardiac: Normal S1/S2, Regular Rate and Rhythm
GI: Soft, nondistended, tender to palpation at the lower quadrants
Extremities: No Clubbing, Cyanosis
Neuro: Nonfocal/Grossly Intact
Psych: Calm, Cooperative
Anticipated Discharge: 24 - 48 hours
Subjective/Interval History
-
Date of Service: September 09, 2025
Overnight events noted, patient had bloody stools. Currently, he states his lower abdominal pain has improved. Denies nausea, denies vomiting. No chest pain, shortness of breath. No fever.
Objective Data
-
Labs:
Laboratory Results
09/08/25 09/09/25
19:31 06:00
WBC 9.8
Hgb 14.5
Hct 42.7
Plt Count 230
Sodium 135 135
Potassium 4.0 4.7
Chloride 98 104
Carbon Dioxide 26 22
BUN 30 H 28 H
Creatinine 1.0 1.0
Glucose 175 H 156 H
Calcium 9.3 8.7
Total Bilirubin 0.9 1.2
AST 26 20
ALT 25 22
Alkaline Phosphatase 215 H 165 H
Vital Signs:
Vital Signs
Temp Pulse Resp BP Pulse Ox
97.9 F 76 18 161/80 96
09/09/25 03:00 09/09/25 03:00 09/09/25 03:00 09/09/25 03:00 09/09/25 03:00
[2025-09-09 07:45] VITALS: BP 166/81
[2025-09-09] MEDS: PROTONIX IV 40 MG IV ×2 (08:05→20:11)
[2025-09-09] MEDS: LIPITOR 40 MG PO (08:06)
[2025-09-09] MEDS: NSS (PRESERVATIVE FREE) 10 ML IV ×2 (08:06→20:11)
--- NOTE | 2025-09-09 08:23 | CON.GI ---
Addendum entered and electronically signed by Isabel James DO 09/09/25 08:59:
The patient was seen and examined by me independently in collaboration with the nurse practitioner.
Past medical history/social history/medications/allergies/family history reviewed.
Lab data and imaging data reviewed.
Andrzej Lowery is an 84-year-old male with past medical history of A-fib status post Watchman, hyperlipidemia, CAD, chronic diastolic heart failure, right bundle riana block, asthma, restrictive lung disease, subdural hematoma status postcraniotomy
admitted with abdominal pain and syncope followed by large-volume hematochezia. He reports abdominal pain located in left lower quadrant with associated bloating, he had a stool with blood only after the pain started upon admission. No prior
episodes like this. Currently, feels much better, some bloating, would like to try advancing his diet. Last colonoscopy was in 2011, had some colon polyps removed, his procedure was complicated by post-polypectomy bleeding. Denies blood thinners or
regular use of NSAIDs.
Initial labs showed a leukocytosis with a WBC count of 15.9, hemoglobin 15.8, platelets 266, lactate 4.4--> 3.7 -->1.3
CTAP shows mild diverticular formation in the distal descending colon and sigmoid colon with subtle soft tissue stranding likely reflecting mild acute diverticulitis as well as about 5 cm segment of the mid sigmoid colon demonstrating
circumferential wall thickening underdistention and subtle soft tissue stranding of the peripheral margin, the segment of sigmoid colon is relatively devoid of diverticular formation.
Suspect mild diverticulitis and possible SCAD vs. ischemic colitis given the presenting symptoms, though, distribution of colitis not consistent with ischemia vs. infectious
-Antibiotics
-hemoglobin stable-- if he has another large volume bloody stool, recommend stat CTA
-Trial of clears, advance to low residue, as tolerated
-outpatient f/u with GI for colonoscopy
Original Note:
Consultation
-
Date/Time Consultation Requested: 09/09/25 2513
Date/Time Consultation Performed: 09/09/25 0730
Requesting Provider: SHADIA Acharya
Performing Provider: SHADIA Nogueira, Carmen James DO
Reason for Consultation: rectal bleeding
Medical History
Chief Complaint / HPI
Chief Complaint: abdominal pain and bleeding
History of Present Illness:
Pt is a 84yo with hx afib with prior watchman, prior cardioversion, left atrial appendage, vein stripping, asthma, borderline NIDDM, squamous cell, anxiety/depression, obesity, restrictive lung disease with pulm follow, CHF, RBBB, HTN,
hyperlipidemia, craniotomy for SDH 2023, constipation, prior polypectomy and bleeding at [facility] 2011 with colonoscopy at for bleeding with placement of clips with onset of abdominal pain and non bloody stools then syncopal event with
911 called and noted with hypotension with BP in 60's with initial check with EMS. On admission noted with blood pressure improved but was noted with elevated lactate 4.4 and WBC 15,[address] for [address] on admission with mild
sigmoid diverticulosis and 5 cm segment of mid sigmoid with circumferential wall thickening with non specific colitis. On admission pt was placed on antibiotics and noted overnight with moderate amount of red and maroon stools and asked to see.
At this time patient does have constipation listed in OP chart but denies any recent symptoms. He admits to some lower abdominal pain and noted bleeding after admission but denies any other gi issues. Last colonoscopy 2011 as noted. No
anticoagulation prior to admission.
09/08/25 - CT A/p IV contrast
Mild sigmoid diverticulitis. 5 cm segment of the mid sigmoid colon which demonstrates circumferential wall thickening with underdistention and subtle soft tissue stranding of the peripheral margin. This segment of the sigmoid colon is relatively
devoid of diverticula formation. No focal mass or overhanging edges are noted to suggest neoplastic process. This could represent extension of inflammatory changes or nonspecific colitis. Recommend follow-up colonoscopy after conservative therapy.
2011- colonoscopy orphanides - One 4 mm polyp in the cecum. - One 4 mm polyp in the ascending colon.
- A single (solitary) ulcer in the mid ascending colon. Clipped - A single (solitary) ulcer at the hepatic flexure. Clipped - Blood in the entire examined colon. - Four hemostatic clips were successfully placed.
- Six hemostatic clips were successfully placed. - Ulcers were site of hot biopsy forcep cautery.
Past Medical History
Past Medical History: Arrhythmias (afib, Right BBB, ), Asthma, Cancer (squamous cell ca, ), CHF, HTN, Hypercholesterolemia, Psychiatric (anxiety/depression) and Other (colon polyp and post polypectomy bleeding at [facility], left atrial
appendage, anemia, restrictive lung disease, elevated IGE, asbestos exposure, subdural hematoma with craniotomy 2023 , obesity)
Past Surgical History: Brain (2023 craniotomy), Cardiac (watchman, prior cardioversion) and Other (vein stripping, cataract surgery, carpel tunnel)
Social History
Tobacco: Non-Smoker
Alcohol: None
Personal:
Living: With Family
Employment: Retired
Family History
Family History: Other (mother colon CA age 58)
Allergies / Home Medications
Allergy/AdvReac Type Severity Reaction Status Date / Time
No Known Drug Allergies Allergy Unknown Verified 09/08/25 22:48
�Medication �Instructions �Recorded
furosemide 40 mg tablet 40 mg PO DAILY Fluid 10/06/13
Retention/Swelling
atorvastatin 40 mg tablet 40 mg PO DAILY High Cholesterol 04/10/24
fluticasone furoate 200 1 inh inhalation R DAILY 04/10/24
mcg/actuation blister powder for Lung/Breathing Issues
inhalation (Arnuity Ellipta)
docusate sodium 100 mg tablet 100 mg PO DAILY Constipation 04/19/24
(Stool Softener)
gabapentin 100 mg capsule 100 mg PO QPM Neurological 04/19/24
Condition
lisinopril 20 mg tablet 20 mg PO DAILY Blood Pressure 02/07/25
citalopram 30 mg capsule 30 mg PO HS Mental Health/Anxiety 05/04/25
aspirin 81 mg tablet,delayed 81 mg PO DAILY 09/08/25
release
Review of Systems
-
History Source: Patient
Constitutional: Reports Fever (low grade 99.5 )
EENT: Reports No Symptoms
Respiratory: Reports No Symptoms
Cardiac: Reports Syncope (prior to admission)
Abdomen/GI: Reports Abdominal Pain, Constipated (by hx ) and Bloody Stools (red/maroon after admission)
: Reports No Symptoms
Musculoskeletal: Reports No Symptoms
Skin: Reports No Symptoms
Neurological: Reports Weakness
Endocrine: Reports No Symptoms
Hematologic/Lymphatic: Reports Bleeding
Vital Signs
Temp Pulse Resp BP Pulse Ox
99.5 F 87 16 166/81 97
09/09/25 07:45 09/09/25 07:45 09/09/25 07:45 09/09/25 07:45 09/09/25 07:45
Physical Exam
Exam
General: Well Developed, Well Nourished and No Apparent Distress
HEENT: Normocephalic and Anicteric
Respiratory: Clear
Cardiac: Regular Rhythm
GI: Soft, Non Distended and Tender (lower abdomen )
Musculoskeletal: No Clubbing and No Cyanosis
Skin: Warm and Dry
Neuro: Awake, Alert and AO x 3
Psych: Calm
Results
WBC 9.8 10^3/uL (4.8-10.8) 09/09/25 06:00
Hgb 14.5 g/dL (13.0-18.0) 09/09/25 06:00
Hct 42.7 % (39.0-52.0) 09/09/25 06:00
MCV 87.3 fL (80.0-94.0) 09/09/25 06:00
Plt Count 230 10^3/uL (130-400) 09/09/25 06:00
Absolute Neuts (auto) 8.4 10^3/uL (1.4-6.5) H 09/09/25 06:00
Sodium 135 mmol/L (135-145) 09/09/25 06:00
Potassium 4.7 mmol/L (3.5-5.1) 09/09/25 06:00
Chloride 104 mmol/L (98-107) 09/09/25 06:00
Carbon Dioxide 22 mmol/L (22-30) 09/09/25 06:00
BUN 28 mg/dl (9-20) H 09/09/25 06:00
Creatinine 1.0 mg/dL (0.7-1.3) 09/09/25 06:00
Calcium 8.7 mg/dl (8.4-10.2) 09/09/25 06:00
Total Bilirubin 1.2 mg/dl (0.2-1.3) 09/09/25 06:00
AST 20 U/L (17-59) 09/09/25 06:00
ALT 22 U/L (0-50) 09/09/25 06:00
Alkaline Phosphatase 165 U/L (38-126) H 09/09/25 06:00
Diagnostic Image Results:
09/08/25 - CT A/p IV contrast
Mild sigmoid diverticulitis. 5 cm segment of the mid sigmoid colon which demonstrates circumferential wall thickening with underdistention and subtle soft tissue stranding of the peripheral margin. This segment of the sigmoid colon is relatively
devoid of diverticula formation. No focal mass or overhanging edges are noted to suggest neoplastic process. This could represent extension of inflammatory changes or nonspecific colitis. Recommend follow-up colonoscopy after conservative therapy.
2011- colonoscopy orphanides - One 4 mm polyp in the cecum. - One 4 mm polyp in the ascending colon.
- A single (solitary) ulcer in the mid ascending colon. Clipped - A single (solitary) ulcer at the hepatic flexure. Clipped - Blood in the entire examined colon. - Four hemostatic clips were successfully placed.
- Six hemostatic clips were successfully placed. - Ulcers were site of hot biopsy forcep cautery.
Assessment / Plan
-
Pt is a 84yo with hx afib with prior watchman, prior cardioversion, left atrial appendage, vein stripping, asthma, borderline NIDDM, squamous cell, anxiety/depression, obesity, restrictive lung disease with pulm follow, CHF, RBBB, HTN,
hyperlipidemia, craniotomy for SDH 2023, constipation, prior polypectomy and bleeding at [facility] 2011 with colonoscopy at for bleeding with placement of clips with onset of abdominal pain and non bloody stools then syncopal event with
911 called and noted with hypotension with BP in 60's with initial check with EMS. On admission noted with blood pressure improved but was noted with elevated lactate 4.4 and WBC 15,[address] on admission with mild
sigmoid diverticulosis and 5 cm segment of mid sigmoid with circumferential wall thickening with non specific colitis. On admission pt was placed on antibiotics and noted overnight with moderate amount of red and maroon stools and asked to see.
At this time patient does have constipation listed in OP chart but denies any recent symptoms.
-abdominal pain and diarrhea with syncope/hypotension prior to admission
-CT with concern for diverticulitis and segment of mid sigmoid with circumferential wall thickening with non specific colitis.
-rectal bleeding after admission
-elevated lactate and WBC on admission with improvement
-hx colon polyp and post polypectomy bleeding 2011
-constipation per OP chart currently denies symptoms
-mother with colon CA
-elevated alk phos
other med problems:
afib with prior watchman,off anticoagulation, prior cardioversion, left atrial appendage, vein stripping, asthma, borderline NIDDM, squamous cell, anxiety/depression, obesity, restrictive lung disease with pulm follow, CHF, RBBB, HTN,
hyperlipidemia, craniotomy for SDH 2023
PLAN:
etiology of symptoms related to infectious with initially loose diarrhea, ischemic process with bleeding with syncope and marked hypotension prior to admission vs other
cont supportive care with IVF, maintain perfusion
IV abx
Lactate and WBC's improved after admission
monitor stools and hbg
if increased bleeding consider CTA
ok for clear diet with slow increase as tolerated
discussed with patient OP follow up to review for colonoscopy
repeat LFT's in AM with elevated alk phos
-
-
Thank you for consultation and allowing me to participate in the patient's care. Please call the operations support representative GI physician during the after hours with any questions or concerns.
[2025-09-09 10:38] VITALS: BP 152/76
[2025-09-09] MEDS: NSS 1000 IV (11:15)
[2025-09-09] MEDS: FLOVENT 110 MCG INHALER 2 PUFF INH ×2 (11:26→19:14)
--- NOTE | 2025-09-09 12:29 | CM ---
Initial assessment completed with pt and at bedside.
Pt is an 84yr old male admitted with Colitis.
At baseline, pt lives with his in a 1 level home with 3ste.
Prior to admission, pt is Indep with all ADLs and ambulation with the use of a cane for stability. Pt does also have a RW if needed.
Pt has no hx of SNF, has used [facility]
PCP; Doug Maldonado
Pharm; [facility] [place]
PLAN; DC to home with no anticipated needs
[2025-09-09] MEDS: ZESTRIL 10 MG PO (12:49)
[2025-09-09 15:42] VITALS: BP 170/92
[2025-09-09] MEDS: NEURONTIN 100 MG PO (17:35)
[2025-09-09 19:26] VITALS: BP 163/83
[2025-09-09] MEDS: FLUSH (NSS) 1 FLUSH IV (20:10)
[2025-09-09] MEDS: CELEXA 30 MG PO (21:42)
[2025-09-09 23:00] VITALS: BP 168/86
[2025-09-10 03:08] VITALS: BP 168/91
[2025-09-10] MEDS: ZOSYN 50 IV ×4 (03:46→22:26)
[2025-09-10 06:00] VITALS: BMI 31.3
[2025-09-10 07:00] VITALS: BP 171/90
[2025-09-10 07:23] LABS: Hematocrit 39.7 % (39.0-52.0); Hemoglobin 13.5 g/dL (13.0-18.0); Mean Corp Hgb Conc. 34.0 g/dL (33.0-37.0); Mean Corpuscular Volume 86.5 fL (80.0-94.0); Platelet Count 197 10^3/uL (130-400); Red Cell Dist. Width 13.2 % (11.5-14.5)
[2025-09-10 07:51] LABS: ALT (SGPT) 15 U/L (0-50); AST (SGOT) 17 U/L (17-59); Albumin 3.4 g/dl (3.5-5.0); Alkaline Phosphatase 105 U/L (38-126); Blood Urea Nitrogen 14 mg/dl (9-20); Calcium 8.4 mg/dl (8.4-10.2); Carbon Dioxide 22 mmol/L (22-30); Chloride 107 mmol/L (98-107); Estimated Creatinine Clearance 75 ml/min; Glucose 119 mg/dl (70-99); Potassium 4.8 mmol/L (3.5-5.1); Sodium 135 mmol/L (135-145); Total Protein 6.4 g/dl (6.3-8.2); eGFR > 60.00
[2025-09-10] MEDS: ZESTRIL 10 MG PO ×2 (08:09→10:00)
[2025-09-10] MEDS: NSS 1000 IV (08:09)
[2025-09-10] MEDS: NSS (PRESERVATIVE FREE) 10 ML IV ×2 (08:09→19:45)
[2025-09-10] MEDS: PROTONIX IV 40 MG IV ×2 (08:09→19:44)
[2025-09-10] MEDS: FLOVENT 110 MCG INHALER 2 PUFF INH ×2 (08:10→19:20)
[2025-09-10] MEDS: LIPITOR 40 MG PO (08:12)
--- NOTE | 2025-09-10 09:25 | W.PN.GI.CBS2 ---
Today's Communication / Plan
-
Advance diet as tolerated. Monitor for bloody stools-- improving. Hgb remains stable
Assessment / Plan
-
Andrzej Lowery is an 84-year-old male with past medical history of A-fib status post Watchman, hyperlipidemia, CAD, chronic diastolic heart failure, right bundle riana block, asthma, restrictive lung disease, subdural hematoma status postcraniotomy
admitted with abdominal pain and syncope followed by large-volume hematochezia. He reports abdominal pain located in left lower quadrant with associated bloating, he had a stool with blood only after the pain started upon admission. No prior
episodes like this. Currently, feels much better, some bloating, would like to try advancing his diet. Last colonoscopy was in 2011, had some colon polyps removed, his procedure was complicated by post-polypectomy bleeding. Denies blood thinners or
regular use of NSAIDs.
Initial labs showed a leukocytosis with a WBC count of 15.9, hemoglobin 15.8, platelets 266, lactate 4.4--> 3.7 -->1.3
CTAP shows mild diverticular formation in the distal descending colon and sigmoid colon with subtle soft tissue stranding likely reflecting mild acute diverticulitis as well as about 5 cm segment of the mid sigmoid colon demonstrating
circumferential wall thickening underdistention and subtle soft tissue stranding of the peripheral margin, the segment of sigmoid colon is relatively devoid of diverticular formation.
Suspect mild diverticulitis and possible SCAD vs. ischemic colitis given the presenting symptoms, though, distribution of colitis not consistent with ischemia vs. infectious
-Antibiotics
-hemoglobin stable-- if he has another large volume bloody stool, recommend stat CTA; suspect bleeding overnight was residual/old, continue to monitor
-He is still on clear liquids, he will let me know after breakfast if he wants to try advancing his diet
-outpatient f/u with GI for colonoscopy, hopefully, he will continue to improve throughout today with hopeful d/c tomorrow
Subjective
Subjective
Date of Service: September 10, 2025
Patient seen in follow-up. He endorses significant improvement in abdominal discomfort . He is still unsure if he wants to try advancing his diet. He had a small amount of blood last night, states it was way less than when he came in. No other bowel
movements.
Objective
Data Reviewed
Laboratory Data:
Laboratory Results
09/10/25 06:28
09/10/25 06:28
Laboratory Results
Magnesium 2.2 mg/dl (1.6-2.3) 09/08/25 19:31
Total Bilirubin 1.7 mg/dl (0.2-1.3) H 09/10/25 06:28
AST 17 U/L (17-59) 09/10/25 06:28
ALT 15 U/L (0-50) 09/10/25 06:28
Alkaline Phosphatase 105 U/L (38-126) 09/10/25 06:28
Vital Signs and I&O:
Vital Signs
Temp Pulse Resp BP Pulse Ox
98.4 F 74 14 171/90 94
09/10/25 07:00 09/10/25 08:17 09/10/25 08:17 09/10/25 08:09 09/10/25 08:17
I&O
09/09/25 09/10/25 09/11/25
06:59 06:59 06:59
Intake Total 600 / 600
Output Total 1200 / 1200
Balance -600 / -600
Physical Exam
Physical Exam
GI: Soft, Non Distended and Non Tender (minimal TTP in LLQ of abdomen, improved )
--- NOTE | 2025-09-10 09:35 | W.PN.HOSP.TC ---
Today's Communication/Plan
-
see bold
Assessment / Plan
Assessment / Plan
HPI: 84-year-old male with past medical history of permanent atrial fibrillation, hypertension, hyperlipidemia, CAD, chronic diastolic heart failure, right bundle branch block,, prior left atrial appendage thrombus, asthma, restrictive lung disease,
borderline diabetes, colon polyps, post polypectomy bleeding, chronic constipation, subdural hematoma after fall status post craniotomy 2023, multilevel degenerative disc disease, sciatica, squamous cell carcinoma, anxiety/depression, obesity, prior
smoker, presenting with sudden onset of abdominal discomfort today with large amount of nonbloody loose bowel movements. Shortly after he had generalized weakness with near syncopal symptoms. 9 1 was called. He was hypotensive here. No fever. He
did have some hamburgers from outside today. No other sick contacts who ate that food. No recent antibiotic use.
#Acute mild sigmoid diverticulitis
#Sepsis due to diverticulitis with lactic acidosis
C. diff neg, salmonella/shigella/camphylobacter neg
Seen by GI, continue IV Zosyn
Tolerating clear liquid diet, stop IV fluids, advance diet as tolerated
GI recommends outpatient follow-up for colonoscopy
#Hematochezia
From diverticulitis
Hemoglobin normal, hold aspirin, trend hemoglobin
Permanent atrial fibrillation status post Watchman
Prior left atrial appendage thrombus
- Patient not on any rate controlling agents
- Hold aspirin for now
Essential hypertension
- Resumed lisinopril 20 mg daily
Hyperlipidemia
CAD
- Hold aspirin
- Continue statin
Chronic diastolic heart failure
- Hold Lasix, stop IVFs
Right bundle branch block
Asthma
Restrictive lung disease
Borderline diabetes
History of colon polyps,
History of postpolypectomy bleeding
Chronic constipation
History of subdural hematoma status postcraniotomy in 2023
Multilevel degenerative disease
- Continue gabapentin
Sciatica
Squamous cell carcinoma
Anxiety/depression
- Continue citalopram
Obesity
Prior smoker
DVT prophylaxis�SCD secondary to bloody stools
Full code
Total time spent to see the patient on the floor, examine the patient, review data and lab results, discuss treatment plan with patient, nursing staff around 39 minutes.
Physical Exam
General: No acute distress
HEENT: Normocephalic, Atraumatic, EOMI, MMM
Respiratory: Clear to Auscultation bilaterally
Cardiac: Normal S1/S2, Regular Rate and Rhythm
GI: Soft, nondistended, tender to palpation at the lower quadrants
Extremities: No Clubbing, Cyanosis
Neuro: Nonfocal/Grossly Intact
Psych: Calm, Cooperative
Anticipated Discharge: 24 - 48 hours
Subjective/Interval History
-
Date of Service: September 10, 2025
Patient reports having 1 small episode of diarrhea and blood yesterday, much less than the day prior. His abdominal pain has resolved. He tolerated a clear liquid diet. Denies chest pain, denies shortness of breath. No fever, no vomiting.
Objective Data
-
Labs:
Laboratory Results
09/10/25
06:28
WBC 8.8
Hgb 13.5
Hct 39.7
Plt Count 197
Sodium 135
Potassium 4.8
Chloride 107
Carbon Dioxide 22
BUN 14
Creatinine 0.8
Glucose 119 H
Calcium 8.4
Total Bilirubin 1.7 H
AST 17
ALT 15
Alkaline Phosphatase 105
Vital Signs:
Vital Signs
Temp Pulse Resp BP Pulse Ox
98.4 F 74 14 171/90 94
09/10/25 07:00 09/10/25 08:17 09/10/25 08:17 09/10/25 08:09 09/10/25 08:17
I&O
09/09/25 09/10/25 09/11/25
06:59 06:59 06:59
Intake Total 600 / 600
Output Total 1200 / 1200
Balance -600 / -600
[2025-09-10 11:00] VITALS: BP 171/90
[2025-09-10 15:00] VITALS: BP 149/75
[2025-09-10] MEDS: NEURONTIN 100 MG PO (17:47)
[2025-09-10 19:30] VITALS: BP 126/52
[2025-09-10] MEDS: FLUSH (NSS) 1 FLUSH IV (19:46)
--- NOTE | 2025-09-10 22:18 | PTCARENOTE ---
Pt had a 13 beat of VTACH. House provider TT. Checked on pt, pt awake and alert. No c/o chest pain, flutter or dizziness. Will continue to monitor.
[2025-09-10] MEDS: CELEXA 30 MG PO (22:26)
[2025-09-10 23:09] VITALS: BP 123/59
[2025-09-11 03:00] VITALS: BP 116/72
[2025-09-11 03:18] VITALS: BMI 31.4
[2025-09-11] MEDS: ZOSYN 50 IV ×2 (04:09→09:29)
[2025-09-11 06:34] LABS: Hematocrit 36.1 % (39.0-52.0); Hemoglobin 12.7 g/dL (13.0-18.0); Mean Corp Hgb Conc. 35.2 g/dL (33.0-37.0); Mean Corpuscular Volume 86.6 fL (80.0-94.0); Platelet Count 188 10^3/uL (130-400); Red Cell Dist. Width 12.6 % (11.5-14.5)
[2025-09-11 07:00] LABS: Blood Urea Nitrogen 10 mg/dl (9-20); Calcium 8.1 mg/dl (8.4-10.2); Carbon Dioxide 20 mmol/L (22-30); Chloride 105 mmol/L (98-107); Estimated Creatinine Clearance 86 ml/min; Glucose 110 mg/dl (70-99); Magnesium 2.0 mg/dl (1.6-2.3); Potassium 4.0 mmol/L (3.5-5.1); Sodium 131 mmol/L (135-145); eGFR > 60.00
[2025-09-11] MEDS: FLOVENT 110 MCG INHALER 2 PUFF INH (07:21)
--- NOTE | 2025-09-11 07:35 | W.PN.GI.CBS2 ---
Today's Communication / Plan
-
Okay for d/c home today (his [birth year] is tomorrow!). Will arrange for outpatient f/u with GI
Assessment / Plan
-
Andrzej Lowery is an 84-year-old male with past medical history of A-fib status post Watchman, hyperlipidemia, CAD, chronic diastolic heart failure, right bundle riana block, asthma, restrictive lung disease, subdural hematoma status postcraniotomy
admitted with abdominal pain and syncope followed by large-volume hematochezia. He reports abdominal pain located in left lower quadrant with associated bloating, he had a stool with blood only after the pain started upon admission. No prior
episodes like this. Currently, feels much better, some bloating, would like to try advancing his diet. Last colonoscopy was in 2011, had some colon polyps removed, his procedure was complicated by post-polypectomy bleeding. Denies blood thinners or
regular use of NSAIDs.
Initial labs showed a leukocytosis with a WBC count of 15.9, hemoglobin 15.8, platelets 266, lactate 4.4--> 3.7 -->1.3
CTAP shows mild diverticular formation in the distal descending colon and sigmoid colon with subtle soft tissue stranding likely reflecting mild acute diverticulitis as well as about 5 cm segment of the mid sigmoid colon demonstrating
circumferential wall thickening underdistention and subtle soft tissue stranding of the peripheral margin, the segment of sigmoid colon is relatively devoid of diverticular formation.
Suspect mild diverticulitis and possible SCAD vs. ischemic colitis given the presenting symptoms, though, distribution of colitis not consistent with ischemia vs. infectious
-Antibiotics
-hemoglobin stable, no further bloody BMs
-He is tolerating low residue diet
-okay for d/c home today, will arrange for outpatient GI f/u and eventual colonoscopy
Subjective
Subjective
Date of Service: September 11, 2025
Patient seen in follow-up. No bloody BMs overnight. He is feeling much better, wants to go home. He is tolerating a low residue diet
Objective
Data Reviewed
Laboratory Data:
Laboratory Results
09/11/25 06:15
09/11/25 06:15
Laboratory Results
Phosphorus 3.3 mg/dl (2.5-4.5) 09/11/25 06:15
Magnesium 2.0 mg/dl (1.6-2.3) 09/11/25 06:15
Total Bilirubin 1.7 mg/dl (0.2-1.3) H 09/10/25 06:28
AST 17 U/L (17-59) 09/10/25 06:28
ALT 15 U/L (0-50) 09/10/25 06:28
Alkaline Phosphatase 105 U/L (38-126) 09/10/25 06:28
Vital Signs and I&O:
Vital Signs
Temp Pulse Resp BP Pulse Ox
98.3 F 66 16 116/72 96
09/11/25 03:00 09/11/25 07:25 09/11/25 07:25 09/11/25 03:00 09/11/25 07:25
I&O
09/10/25 09/11/25 09/12/25
06:59 06:59 06:59
Intake Total 600 / 600 1360 / 1360
Output Total 1200 / 1200 1800 / 1800
Balance -600 / -600 -440 / -440
Physical Exam
Physical Exam
GI: Soft, Non Distended and Non Tender (minimal TTP in LLQ of abdomen, improved )
[2025-09-11 07:54] VITALS: BP 152/67
[2025-09-11] MEDS: LIPITOR 40 MG PO (09:24)
[2025-09-11] MEDS: ZESTRIL 20 MG PO (09:24)
[2025-09-11] MEDS: PROTONIX IV 40 MG IV (09:24)
[2025-09-11] MEDS: NSS (PRESERVATIVE FREE) 10 ML IV (09:25)
[2025-09-11 11:10] VITALS: BP 143/63
--- NOTE | 2025-09-11 11:37 | W.DCSUMMARY ---
Discharge Summary
Discharge Data
Date of Admission: 09/08/25
Date of Discharge: 09/11/25
Total time spent discharging patient (in min): 35
-
Pending Results: No
Hospital Course
Attending physician on day of discharge:
Jody Mahoney MD
Discharge diagnosis:
Acute sigmoid diverticulitis
Secondary diagnoses:
Sepsis
Hematochezia
A-fib
HTN
HLD
CAD
CHF
Consultations:
GI
Procedures:
none
Hospital course:
84M with A-fib, HTN, CAD, CHF, history of subdural hematoma s/p craniotomy, p/w abdominal pain, diarrhea. He was found to be in sepsis with hypotension, lactic acidosis, imaging showed acute colitis. He was treated with IV fluids, IV antibiotics,
CLD. He developed hematochezia, which was also felt to be due to the diverticulitis, and his aspirin was held. GI was consulted and recommended monitoring inpatient, with outpatient colonoscopy. He had improvement in his symptoms and his labs,
his diet was advanced successfully and his blood pressure medications that were on hold were resumed. His Zosyn was changed to oral Augmentin, and his aspirin was resumed for discharge after conversation with GI.
Diagnostic Findings:
CT A/P
Mild sigmoid diverticulitis. 5 cm segment of the mid sigmoid colon which demonstrates circumferential wall thickening with underdistention and subtle soft tissue stranding of the peripheral margin. This segment of the sigmoid colon is relatively
devoid of diverticula formation. No focal mass or overhanging edges are noted to suggest neoplastic process. This could represent extension of inflammatory changes or nonspecific colitis. Recommend follow-up colonoscopy after conservative therapy.
Physical exam on discharge:
Gen: NAD
HEENT: PERRLA, EOMI, MMM, neck supple
Cards: RRR, no M/G/R
Resp: Lungs CTAB, no W/R/R
GI: soft, NT/ND/NABS
MSK: No edema
Skin: warm and dry, no rash, ulcer or lesions
Heme: No LAD
Psych: Calm
Neuro: AAOx3
Discharge disposition:
Home
Discharge Plan
-
Patient Disposition: Home (Routine Discharge)
Discharge Diagnosis/Procedures: Colitis
Diet: Regular
Activity: As tolerated
Referrals:
Doug Maldonado MD [Family Provider, Family Practice]
Isabel James DO [Active, Gastroenterology] - 10/24/25 11:30 am
Referral Note:
Prescriptions:
New
amoxicillin-pot clavulanate 875-125 mg tablet
1 tab PO BID 4 Days Qty: 8 0RF
Continued
furosemide 40 MG tablet
40 mg PO DAILY
atorvastatin 40 mg Tablet
40 mg PO DAILY
fluticasone furoate [Arnuity Ellipta] 200 mcg/actuation Blister With Device
1 inh INHALATION R DAILY
gabapentin 100 mg Capsule
100 mg PO QPM
docusate sodium [Stool Softener] 100 mg Tablet
100 mg PO DAILY
lisinopril 20 mg Tablet
20 mg PO DAILY
citalopram 30 mg Capsule
30 mg PO HS
aspirin 81 mg Tablet,Delayed Release (Dr/Ec)
81 mg PO DAILY
Discharge Orders:
Discharge Patient (As Directed); Ordered 09/11/25
Ordered By: Jody Mahoney
Discharge Date and Time
Print Language: MICRONESIAN
[2025-09-11 12:09] VITALS: BP 148/81; PULSE 65
--- NOTE | 2025-09-11 12:16 | PTOTSP ---
Pt was able to get OOB and ambulate in hallway with his cane and climb steps with railing independently. No acute PT needs were identified. OK for dc to home from PT standpoint.
--- NOTE | 2025-09-11 12:41 | CM ---
patient seen at bedside
declined VN
PT eval-no needs
IMM explained & signed - in chart
PLAN: Home, no needs
to transport
== END 2025-09-11 15:18 | disposition home or self-care (01) | DRG 872 ==
LOC: 3 WEST ACU 21:55
PROVIDERS: Family Medicine; Nurse Practitioner Adult Health; ADMITTING PHYSICIAN Hospitalist; ATTENDING PHYSICIAN Internal Medicine; CONSULT PHYSICIAN Internal Medicine; EMERGENCY PHYSICIAN Emergency Medicine; FAMILY PHYSICIAN Family Medicine
DX: A41.9 Sepsis, unspecified organism (principal); K57.32 Diverticulitis of large intestine without perforation or abscess without bleeding; E87.20 Acidosis, unspecified; I48.21 Permanent atrial fibrillation; I50.32 Chronic diastolic (congestive) heart failure; K92.1 Melena; K52.9 Noninfective gastroenteritis and colitis, unspecified; R65.20 Severe sepsis without septic shock; I95.89 Other hypotension; I11.0 Hypertensive heart disease with heart failure; E66.9 Obesity, unspecified; Z68.31 Body mass index [BMI] 31.0-31.9, adult; F32.A Depression, unspecified; F41.9 Anxiety disorder, unspecified; I25.10 Atherosclerotic heart disease of native coronary artery without angina pectoris; I45.10 Unspecified right bundle-branch block; J45.909 Unspecified asthma, uncomplicated; J98.4 Other disorders of lung; E78.5 Hyperlipidemia, unspecified; K59.09 Other constipation; M54.30 Sciatica, unspecified side; Z79.82 Long term (current) use of aspirin; Z87.891 Personal history of nicotine dependence; Z79.899 Other long term (current) drug therapy
CPT/HCPCS: 74177; 80048; 80053; 83605; 83735; 84100; 85025; 85027; 87045; 87046; 87324; 87427; 87449; 94640; 96361; 96365; 96375; 97162; 99285; Q9967